=== PATIENT | female | born 1950 | race Caucasian/White ===

== ENCOUNTER 2017-06-04 08:45 | Inpatient (IN) | payer MEDICARE, MEDICAID ==
[~2017-06-04] VITALS: Ht 170.2 cm; Wt 47.7 kg
[~2017-06-04 08:45] MED LIST: ALBU18HF2 INH; ARIP10TA15 PO; ASPI-1264 PO; ATI1T PO; ATOR10TA87 PO; ATR0.5NEB NEB; BISA10SU60 PR; BUDE10.2 INH; DIPH25CA83 PO; ESCI10TA PO; FLUT16SP10; IBUP-1594 PO; LORA1TAB PO; LURA60TA2 PO; LURA80TA3 PO; MAG355OR18 PO; MAGN400O6 PO; MONT10TA21 PO; MULT1TAB74 PO; OLAN5TAB3 PO; TOPI25TA15 PO
[2017-06-04] MEDS ORDERED: dexamethasone sod phosphate 10mg/ml inj IV STA (09:01)
[2017-06-04] MEDS ORDERED: ipratropium/albuterol 3ml nebule NEB ONE (09:05)
[2017-06-04] MEDS ORDERED: vancomycin/NS 1 GM ADD-VANTAGE 250 ML IV ONE ×2 (09:25→11:00)
[2017-06-04] MEDS ORDERED: piperacillin/tazo 3.375gm/50ml 50 ML IV ONE (09:25)
[2017-06-04] MEDS ORDERED: normal saline 1000ML IV soln IV ONE (09:25)
[2017-06-04 09:39] LABS: BASOPHILS % (AUTO) 0 % (0-1); EOSINOPHILS % (AUTO) 0 % (0-6); HEMOGLOBIN 13.4 g/dl (12.0-16.0); LYMPHOCYTES # (AUTO) 0.3 X10'3 (1.1-4.8); LYMPHOCYTES % (AUTO) 3.2 % (21-51); MEAN CORPUSCULAR HEMOGLOBIN 31.7 PG (27.0-31.0); MEAN CORPUSCULAR HGB CONC 32.6 % (33.0-36.5); MEAN CORPUSCULAR VOLUME 97.4 FL (78-98); MONOCYTES % (AUTO) 9.8 % (2-12); NEUTROPHILS # (AUTO) 9.2 X10'3 (1.8-7.7); PLATELET COUNT 195 X10'3 (140-440); RED BLOOD COUNT 4.21 X10'6 (4.20-5.60); RED CELL DISTRIBUTION WIDTH 14.3 % (11.5-14.5); WHITE BLOOD COUNT 10.6 X10'3 (4.5-11.0)
[2017-06-04 09:41] LABS: ABG BASE EXCESS 14.1 mmol/L (-2.0-3.0); ABG HCO3 43.3 mmol/L (22.0-26.0); ABG OXYGEN SATURATION 94.2 % (95-98); ABG PCO2 (T) 79.5 mmHg (32.0-45.0); ABG PH (T) 7.354 (7.350-7.450); ABG PO2 (T) 72.6 mmHg (83-108); ALLEN'S TEST Positive; FCOHb 1.5 % (0.5-1.5); FLOW 6 L/min; FMetHb 0.2 % (0.3-1.12); FO2Hb 92.6 % (94-100); TOTAL HEMOGLOBIN 13.2 G/dl (12.0-16.0)
[2017-06-04 10:05] LABS: ALANINE AMINOTRANSFERASE 54 U/L (12-78); ALBUMIN 3.3 G/DL (3.4-5.0); ALBUMIN/GLOBULIN RATIO 0.8 (1.1-1.5); ALKALINE PHOSPHATASE 93 IU/L (46-116); ANION GAP -1 (8-16); ASPARTATE AMINO TRANSFERASE 41 U/L (10-37); BILIRUBIN,TOTAL 0.5 MG/DL (0.1-1.0); BLOOD UREA NITROGEN 21 MG/DL (7-18); BUN/CREATININE RATIO 36.2 (6.6-38.0); CALCIUM 9.3 MG/DL (8.5-10.1); CHLORIDE 99 MMOL/L (99-107); CREATININE 0.58 MG/DL (0.40-0.90); GLUCOSE 172 MG/DL (70-104); POTASSIUM 3.6 MMOL/L (3.5-5.1); SODIUM 140 MMOL/L (135-145); TOTAL PROTEIN 7.7 G/DL (6.4-8.2); eGFR > 90 ML/MIN
[2017-06-04 10:06] LABS: TOTAL CARBON DIOXIDE 42.1 MMOL/L (24-32)
[2017-06-04 11:20] LABS: ABG BASE EXCESS 5.7 mmol/L (-2.0-3.0); ABG HCO3 33.9 mmol/L (22.0-26.0); ABG OXYGEN SATURATION 93.6 % (95-98); ABG PCO2 (T) 67.9 mmHg (32.0-45.0); ABG PH (T) 7.316 (7.350-7.450); ALLEN'S TEST Positive; FCOHb 0.9 % (0.5-1.5); FMetHb 0.2 % (0.3-1.12); FO2Hb 92.6 % (94-100); RESPIRATORY RATE 20 b/min; TOTAL HEMOGLOBIN 12.5 G/dl (12.0-16.0)
[2017-06-04] MEDS ORDERED: mag hydrox/Alum hydrox/simeth 30ml oral suspension PO PRN ×2 (11:40→11:45)
[2017-06-04] MEDS ORDERED: LORazepam 1 MG tablet PO PRN (11:40)
[2017-06-04] MEDS ORDERED: ondansetron/PF 4mg/2ml inj IV PRN (11:45)
[2017-06-04] MEDS ORDERED: acetaminophen 325mg tablet PO PRN (11:45)
[2017-06-04] MEDS: levoFLOXACIN-Levaquin 750MG/D5 150 ML IV SCH (13:32)
[2017-06-04 14:00] VITALS: BP 126/65
[2017-06-04] MEDS: ipratropium/albuterol 3ml nebule NEB SCH ×3 (14:33→23:15)
[2017-06-04] MEDS: methylPREDNISolone sod succ/PF 40mg inj. IV SCH ×2 (14:58→20:45)
[2017-06-04] MEDS: magnesium hydroxide 30ml (MOM) UD suspension PO PRN (15:55)
[2017-06-04 18:00] VITALS: BP 127/70
[2017-06-04] MEDS: furosemide 10 MG/1 ML 10ml inj IV SCH (20:45)
[2017-06-04] MEDS: topiramate 25mg tablet PO SCH (20:45)
[2017-06-04] MEDS: aspirin 325mg tablet PO SCH (20:46)
[2017-06-04] MEDS: olanzapine 10mg tablet PO SCH (20:46)
[2017-06-04] MEDS: citalopram 20mg tablet PO SCH (20:46)
[2017-06-04] MEDS: atorvastatin 10mg tablet PO SCH (20:46)
[2017-06-04 22:00] VITALS: BP 123/75
[2017-06-05] MEDS: methylPREDNISolone sod succ/PF 40mg inj. IV SCH ×6 (02:30→19:57)
[2017-06-05] MEDS: ipratropium/albuterol 3ml nebule NEB SCH ×6 (03:17→23:16)
[2017-06-05 05:30] VITALS: BP 138/76
[2017-06-05 06:40] LABS: ALBUMIN 2.8 G/DL (3.4-5.0); ANION GAP 3 (8-16); BLOOD UREA NITROGEN 14 MG/DL (7-18); BUN/CREATININE RATIO 25.5 (6.6-38.0); CALCIUM 8.5 MG/DL (8.5-10.1); CHLORIDE 100 MMOL/L (99-107); CREATININE 0.55 MG/DL (0.40-0.90); GLUCOSE 183 MG/DL (70-104); SODIUM 140 MMOL/L (135-145); TOTAL CARBON DIOXIDE 37.2 MMOL/L (24-32); eGFR > 90 ML/MIN
[2017-06-05 07:15] LABS: BASOPHILS % (AUTO) 0 % (0-1); EOSINOPHILS % (AUTO) 0 % (0-6); HEMATOCRIT 35.3 % (35.0-45.0); HEMOGLOBIN 11.9 g/dl (12.0-16.0); LYMPHOCYTES # (AUTO) 0.4 X10'3 (1.1-4.8); LYMPHOCYTES % (AUTO) 4.2 % (21-51); MEAN CORPUSCULAR HEMOGLOBIN 32.2 PG (27.0-31.0); MEAN CORPUSCULAR HGB CONC 33.6 % (33.0-36.5); MEAN CORPUSCULAR VOLUME 95.8 FL (78-98); MEAN PLATELET VOLUME 8.3 FL (7.4-10.4); MONOCYTES # (AUTO) 0.4 X10'3 (0-0.9); MONOCYTES % (AUTO) 4.2 % (2-12); NEUTROPHILS # (AUTO) 8.2 X10'3 (1.8-7.7); NEUTROPHILS % (AUTO) 91.6 % (42-75); PLATELET COUNT 201 X10'3 (140-440); RED BLOOD COUNT 3.68 X10'6 (4.20-5.60); WHITE BLOOD COUNT 8.9 X10'3 (4.5-11.0)
[2017-06-05] MEDS ORDERED: potassium Cl 40MEQ/NS 500ml 500 ML IV PRN ×2 (07:30)
[2017-06-05] MEDS ORDERED: potassium Cl 20 mEq SR tablet PO PRN (07:30)
[2017-06-05] MEDS: fluticasone nasal spray 16GM bottle NS SCH (08:57)
[2017-06-05] MEDS: aripiprazole 5mg tablet PO SCH (08:57)
[2017-06-05] MEDS: LACTOBACILLUS RHAMNOSUS GG 15 billion unit sprinkle caps PO SCH (08:58)
[2017-06-05] MEDS: aspirin 325mg tablet PO SCH ×2 (08:58→19:49)
[2017-06-05] MEDS: potassium Cl 20 mEq SR tablet PO PRN ×3 (08:58→13:38)
[2017-06-05] MEDS: topiramate 25mg tablet PO SCH ×2 (08:58→20:00)
[2017-06-05] MEDS: diphenhydrAMINE 25mg capsule PO SCH (08:58)
[2017-06-05] MEDS: multivitamins, therapeutics tablet PO SCH (08:58)
[2017-06-05] MEDS: levoFLOXACIN-Levaquin 750MG/D5 150 ML IV SCH (08:59)
[2017-06-05] MEDS: lurasidone 60mg tablet PO SCH (08:59)
[2017-06-05] MEDS: citalopram 20mg tablet PO SCH ×2 (08:59→19:57)
[2017-06-05] MEDS: montelukast 10mg tablet PO SCH (08:59)
[2017-06-05] MEDS: furosemide 10 MG/1 ML 10ml inj IV SCH ×2 (09:32→19:57)
[2017-06-05 10:00] VITALS: BP 139/68
[2017-06-05] MEDS: clindamycin phosphate inj 300 MG in dextrose 5%-water 50ml 48 ML IV SCH ×3 (10:51→19:48)
[2017-06-05 18:00] VITALS: BP 120/70
[2017-06-05] MEDS: atorvastatin 10mg tablet PO SCH (20:01)
[2017-06-05] MEDS: olanzapine 10mg tablet PO SCH (20:02)
[2017-06-05 22:00] VITALS: BP 108/54
[2017-06-06] MEDS: clindamycin phosphate inj 300 MG in dextrose 5%-water 50ml 48 ML IV SCH ×4 (01:27→20:17)
[2017-06-06] MEDS: methylPREDNISolone sod succ/PF 40mg inj. IV SCH ×4 (01:27→20:16)
[2017-06-06] MEDS: ipratropium/albuterol 3ml nebule NEB SCH ×6 (02:50→23:32)
[2017-06-06 05:00] VITALS: BP 101/54
[2017-06-06 06:53] LABS: BASOPHILS % (AUTO) 0.2 % (0-1); EOSINOPHILS % (AUTO) 0 % (0-6); HEMATOCRIT 35.7 % (35.0-45.0); HEMOGLOBIN 11.8 g/dl (12.0-16.0); LYMPHOCYTES # (AUTO) 0.6 X10'3 (1.1-4.8); LYMPHOCYTES % (AUTO) 4.4 % (21-51); MEAN CORPUSCULAR HEMOGLOBIN 31.7 PG (27.0-31.0); MEAN CORPUSCULAR HGB CONC 33.1 % (33.0-36.5); MEAN CORPUSCULAR VOLUME 95.9 FL (78-98); MEAN PLATELET VOLUME 8.3 FL (7.4-10.4); MONOCYTES # (AUTO) 0.9 X10'3 (0-0.9); NEUTROPHILS # (AUTO) 11.8 X10'3 (1.8-7.7); NEUTROPHILS % (AUTO) 88.4 % (42-75); PLATELET COUNT 231 X10'3 (140-440); RED BLOOD COUNT 3.72 X10'6 (4.20-5.60); RED CELL DISTRIBUTION WIDTH 14.2 % (11.5-14.5); WHITE BLOOD COUNT 13.4 X10'3 (4.5-11.0)
[2017-06-06 07:06] LABS: ALBUMIN 2.6 G/DL (3.4-5.0); ANION GAP 1 (8-16); BLOOD UREA NITROGEN 24 MG/DL (7-18); BUN/CREATININE RATIO 42.1 (6.6-38.0); CALCIUM 8.6 MG/DL (8.5-10.1); CHLORIDE 104 MMOL/L (99-107); CREATININE 0.57 MG/DL (0.40-0.90); GLUCOSE 132 MG/DL (70-104); MAGNESIUM 2.3 MG/DL (1.5-2.4); POTASSIUM 3.7 MMOL/L (3.5-5.1); SODIUM 146 MMOL/L (135-145); eGFR > 90 ML/MIN
[2017-06-06 07:12] LABS: TOTAL CARBON DIOXIDE 41.3 MMOL/L (24-32)
[2017-06-06] MEDS: LACTOBACILLUS RHAMNOSUS GG 15 billion unit sprinkle caps PO SCH (07:30)
[2017-06-06] MEDS: citalopram 20mg tablet PO SCH ×2 (08:00→20:16)
[2017-06-06] MEDS: furosemide 10 MG/1 ML 10ml inj IV SCH ×2 (08:00→20:15)
[2017-06-06] MEDS: aripiprazole 5mg tablet PO SCH (08:00)
[2017-06-06] MEDS: lurasidone 60mg tablet PO SCH (08:00)
[2017-06-06] MEDS: fluticasone nasal spray 16GM bottle NS SCH (09:33)
[2017-06-06] MEDS: aspirin 325mg tablet PO SCH ×2 (09:37→20:16)
[2017-06-06] MEDS: multivitamins, therapeutics tablet PO SCH (09:38)
[2017-06-06] MEDS: diphenhydrAMINE 25mg capsule PO SCH (09:38)
[2017-06-06] MEDS: montelukast 10mg tablet PO SCH (09:38)
[2017-06-06] MEDS: topiramate 25mg tablet PO SCH ×2 (09:39→20:16)
[2017-06-06 10:00] VITALS: BP 117/71
[2017-06-06] MEDS: levoFLOXACIN-Levaquin 750MG/D5 150 ML IV SCH (11:52)
[2017-06-06] MEDS ORDERED: glycerin ADULT rectal suppository RC PRN (15:20)
[2017-06-06] MEDS: magnesium hydroxide 30ml (MOM) UD suspension PO PRN (17:23)
[2017-06-06 18:00] VITALS: BP 118/66
[2017-06-06] MEDS: olanzapine 10mg tablet PO SCH (20:15)
[2017-06-06] MEDS: atorvastatin 10mg tablet PO SCH (20:16)
[2017-06-06 22:00] VITALS: BP 106/64
[2017-06-07] MEDS: methylPREDNISolone sod succ/PF 40mg inj. IV SCH ×4 (02:23→20:59)
[2017-06-07] MEDS: clindamycin phosphate inj 300 MG in dextrose 5%-water 50ml 48 ML IV SCH ×4 (02:23→20:59)
[2017-06-07] MEDS: ipratropium/albuterol 3ml nebule NEB SCH ×6 (03:40→23:51)
[2017-06-07 06:00] VITALS: BP 116/70
[2017-06-07 07:05] LABS: BASOPHILS % (AUTO) 0.1 % (0-1); EOSINOPHILS % (AUTO) 0 % (0-6); HEMATOCRIT 38.4 % (35.0-45.0); HEMOGLOBIN 12.6 g/dl (12.0-16.0); LYMPHOCYTES # (AUTO) 0.5 X10'3 (1.1-4.8); LYMPHOCYTES % (AUTO) 3.7 % (21-51); MEAN CORPUSCULAR HEMOGLOBIN 31.7 PG (27.0-31.0); MEAN CORPUSCULAR HGB CONC 32.9 % (33.0-36.5); MEAN CORPUSCULAR VOLUME 96.4 FL (78-98); MEAN PLATELET VOLUME 7.7 FL (7.4-10.4); MONOCYTES # (AUTO) 0.6 X10'3 (0-0.9); MONOCYTES % (AUTO) 4.6 % (2-12); NEUTROPHILS # (AUTO) 11.4 X10'3 (1.8-7.7); NEUTROPHILS % (AUTO) 91.6 % (42-75); PLATELET COUNT 256 X10'3 (140-440); RED BLOOD COUNT 3.98 X10'6 (4.20-5.60); RED CELL DISTRIBUTION WIDTH 14.1 % (11.5-14.5); WHITE BLOOD COUNT 12.4 X10'3 (4.5-11.0)
[2017-06-07 07:20] LABS: ALBUMIN 2.7 G/DL (3.4-5.0); ANION GAP 0 (8-16); BLOOD UREA NITROGEN 20 MG/DL (7-18); BUN/CREATININE RATIO 34.5 (6.6-38.0); CALCIUM 8.7 MG/DL (8.5-10.1); CHLORIDE 101 MMOL/L (99-107); CREATININE 0.58 MG/DL (0.40-0.90); GLUCOSE 139 MG/DL (70-104); MAGNESIUM 2.4 MG/DL (1.5-2.4); POTASSIUM 3.8 MMOL/L (3.5-5.1); SODIUM 143 MMOL/L (135-145); eGFR > 90 ML/MIN
[2017-06-07 07:22] LABS: TOTAL CARBON DIOXIDE 41.9 MMOL/L (24-32)
[2017-06-07] MEDS: LACTOBACILLUS RHAMNOSUS GG 15 billion unit sprinkle caps PO SCH (07:30)
[2017-06-07] MEDS: levoFLOXACIN-Levaquin 750MG/D5 150 ML IV SCH (07:35)
[2017-06-07] MEDS: topiramate 25mg tablet PO SCH ×2 (08:00→21:04)
[2017-06-07] MEDS: citalopram 20mg tablet PO SCH ×2 (08:00→21:03)
[2017-06-07] MEDS: lurasidone 60mg tablet PO SCH (08:00)
[2017-06-07] MEDS: furosemide 10 MG/1 ML 10ml inj IV SCH ×2 (08:00→21:01)
[2017-06-07] MEDS: aripiprazole 5mg tablet PO SCH (08:00)
[2017-06-07] MEDS: fluticasone nasal spray 16GM bottle NS SCH (08:38)
[2017-06-07] MEDS: multivitamins, therapeutics tablet PO SCH (08:40)
[2017-06-07] MEDS: montelukast 10mg tablet PO SCH (08:41)
[2017-06-07] MEDS: diphenhydrAMINE 25mg capsule PO SCH (08:43)
[2017-06-07] MEDS: aspirin 325mg tablet PO SCH ×2 (08:43→21:03)
[2017-06-07 10:00] VITALS: BP 131/60
[2017-06-07 18:08] VITALS: BP 128/76
[2017-06-07] MEDS: ipratropium 0.06% nasal spray 15ml NS SCH (21:02)
[2017-06-07] MEDS: atorvastatin 10mg tablet PO SCH (21:03)
[2017-06-07] MEDS: olanzapine 10mg tablet PO SCH (21:03)
[2017-06-07 23:15] VITALS: BP 122/73
[2017-06-08] MEDS: clindamycin phosphate inj 300 MG in dextrose 5%-water 50ml 48 ML IV SCH ×4 (01:55→21:16)
[2017-06-08] MEDS: methylPREDNISolone sod succ/PF 40mg inj. IV SCH ×4 (01:55→21:15)
[2017-06-08] MEDS: magnesium hydroxide 30ml (MOM) UD suspension PO PRN (02:00)
[2017-06-08] MEDS: ipratropium/albuterol 3ml nebule NEB SCH ×6 (03:39→22:54)
[2017-06-08 05:55] LABS: BASOPHILS % (AUTO) 0.1 % (0-1); EOSINOPHILS % (AUTO) 0 % (0-6); HEMATOCRIT 40.2 % (35.0-45.0); HEMOGLOBIN 13.2 g/dl (12.0-16.0); LYMPHOCYTES # (AUTO) 0.5 X10'3 (1.1-4.8); LYMPHOCYTES % (AUTO) 4.2 % (21-51); MEAN CORPUSCULAR HEMOGLOBIN 31.4 PG (27.0-31.0); MEAN CORPUSCULAR HGB CONC 32.9 % (33.0-36.5); MEAN CORPUSCULAR VOLUME 95.4 FL (78-98); MEAN PLATELET VOLUME 7.8 FL (7.4-10.4); MONOCYTES # (AUTO) 0.3 X10'3 (0-0.9); MONOCYTES % (AUTO) 2.5 % (2-12); NEUTROPHILS # (AUTO) 11.7 X10'3 (1.8-7.7); NEUTROPHILS % (AUTO) 93.2 % (42-75); PLATELET COUNT 288 X10'3 (140-440); RED BLOOD COUNT 4.22 X10'6 (4.20-5.60); RED CELL DISTRIBUTION WIDTH 14.2 % (11.5-14.5); WHITE BLOOD COUNT 12.6 X10'3 (4.5-11.0)
[2017-06-08 06:00] VITALS: BP 132/82
[2017-06-08 06:19] LABS: ALBUMIN 3.1 G/DL (3.4-5.0); ANION GAP 4 (8-16); BLOOD UREA NITROGEN 18 MG/DL (7-18); CALCIUM 9.1 MG/DL (8.5-10.1); CHLORIDE 98 MMOL/L (99-107); CREATININE 0.72 MG/DL (0.40-0.90); GLUCOSE 158 MG/DL (70-104); MAGNESIUM 2.2 MG/DL (1.5-2.4); POTASSIUM 3.3 MMOL/L (3.5-5.1); SODIUM 140 MMOL/L (135-145); TOTAL CARBON DIOXIDE 38.3 MMOL/L (24-32); eGFR 81 ML/MIN
[2017-06-08] MEDS: fluticasone nasal spray 16GM bottle NS SCH (08:00)
[2017-06-08] MEDS: lurasidone 60mg tablet PO SCH (08:24)
[2017-06-08] MEDS: citalopram 20mg tablet PO SCH ×2 (08:24→21:16)
[2017-06-08] MEDS: aripiprazole 5mg tablet PO SCH (08:24)
[2017-06-08] MEDS: aspirin 325mg tablet PO SCH ×2 (08:24→21:16)
[2017-06-08] MEDS: acetaZOLAMIDE 250mg tablet PO SCH (08:24)
[2017-06-08] MEDS: diphenhydrAMINE 25mg capsule PO SCH (08:24)
[2017-06-08] MEDS: LACTOBACILLUS RHAMNOSUS GG 15 billion unit sprinkle caps PO SCH (08:24)
[2017-06-08] MEDS: montelukast 10mg tablet PO SCH (08:24)
[2017-06-08] MEDS: multivitamins, therapeutics tablet PO SCH (08:24)
[2017-06-08] MEDS: topiramate 25mg tablet PO SCH ×2 (08:24→21:16)
[2017-06-08] MEDS: furosemide 10 MG/1 ML 10ml inj IV SCH ×2 (08:32→21:15)
[2017-06-08] MEDS: ipratropium 0.06% nasal spray 15ml NS SCH ×2 (08:40→21:15)
[2017-06-08] MEDS: levoFLOXACIN-Levaquin 750MG/D5 150 ML IV SCH (09:49)
[2017-06-08 10:00] VITALS: BP 122/67
[2017-06-08] MEDS ORDERED: CLON-527 PO (11:31)
[2017-06-08] MEDS ORDERED: OLME5TAB3 PO (11:31)
[2017-06-08] MEDS ORDERED: CARB15DR91 EACH EAR (11:34)
[2017-06-08 18:00] VITALS: BP 128/79
[2017-06-08] MEDS: potassium Cl 20 mEq SR tablet PO SCH ×2 (20:00→21:16)
[2017-06-08] MEDS: olanzapine 10mg tablet PO SCH (21:16)
[2017-06-08] MEDS: atorvastatin 10mg tablet PO SCH (21:17)
[2017-06-08 22:00] VITALS: BP 119/72
[2017-06-09] MEDS: clindamycin phosphate inj 300 MG in dextrose 5%-water 50ml 48 ML IV SCH ×2 (02:12→09:29)
[2017-06-09] MEDS: methylPREDNISolone sod succ/PF 40mg inj. IV SCH ×2 (02:12→07:21)
[2017-06-09] MEDS: ipratropium/albuterol 3ml nebule NEB SCH ×2 (03:05→08:31)
[2017-06-09] MEDS: potassium Cl 20 mEq SR tablet PO SCH ×2 (04:00)
[2017-06-09 06:12] LABS: BASOPHILS % (AUTO) 0.1 % (0-1); EOSINOPHILS # (AUTO) 0.1 X10'3 (0-0.9); HEMATOCRIT 45.3 % (35.0-45.0); HEMOGLOBIN 14.9 g/dl (12.0-16.0); LYMPHOCYTES # (AUTO) 0.6 X10'3 (1.1-4.8); LYMPHOCYTES % (AUTO) 4.8 % (21-51); MEAN CORPUSCULAR HEMOGLOBIN 31.4 PG (27.0-31.0); MEAN CORPUSCULAR HGB CONC 32.9 % (33.0-36.5); MEAN CORPUSCULAR VOLUME 95.3 FL (78-98); MEAN PLATELET VOLUME 7.5 FL (7.4-10.4); MONOCYTES # (AUTO) 0.1 X10'3 (0-0.9); MONOCYTES % (AUTO) 1.2 % (2-12); NEUTROPHILS # (AUTO) 11.5 X10'3 (1.8-7.7); NEUTROPHILS % (AUTO) 92.9 % (42-75); PLATELET COUNT 350 X10'3 (140-440); RED BLOOD COUNT 4.76 X10'6 (4.20-5.60); RED CELL DISTRIBUTION WIDTH 14.1 % (11.5-14.5); WHITE BLOOD COUNT 12.3 X10'3 (4.5-11.0)
[2017-06-09 06:23] LABS: ALBUMIN 3.4 G/DL (3.4-5.0); ANION GAP 5 (8-16); BLOOD UREA NITROGEN 25 MG/DL (7-18); BUN/CREATININE RATIO 31.3 (6.6-38.0); CALCIUM 9.6 MG/DL (8.5-10.1); CHLORIDE 98 MMOL/L (99-107); GLUCOSE 146 MG/DL (70-104); MAGNESIUM 2.2 MG/DL (1.5-2.4); POTASSIUM 4.2 MMOL/L (3.5-5.1); SODIUM 137 MMOL/L (135-145); TOTAL CARBON DIOXIDE 34.1 MMOL/L (24-32); eGFR 72 ML/MIN
[2017-06-09 06:50] VITALS: BP 135/43
[2017-06-09] MEDS: topiramate 25mg tablet PO SCH (07:20)
[2017-06-09] MEDS: montelukast 10mg tablet PO SCH (07:20)
[2017-06-09] MEDS: acetaZOLAMIDE 250mg tablet PO SCH (07:21)
[2017-06-09] MEDS: LACTOBACILLUS RHAMNOSUS GG 15 billion unit sprinkle caps PO SCH (07:21)
[2017-06-09] MEDS: multivitamins, therapeutics tablet PO SCH (07:21)
[2017-06-09] MEDS: lurasidone 60mg tablet PO SCH (07:21)
[2017-06-09] MEDS: aspirin 325mg tablet PO SCH (07:21)
[2017-06-09] MEDS: citalopram 20mg tablet PO SCH (07:21)
[2017-06-09] MEDS: diphenhydrAMINE 25mg capsule PO SCH (07:21)
[2017-06-09] MEDS: fluticasone nasal spray 16GM bottle NS SCH (07:22)
[2017-06-09] MEDS: ipratropium 0.06% nasal spray 15ml NS SCH (07:22)
[2017-06-09] MEDS: levoFLOXACIN-Levaquin 750MG/D5 150 ML IV SCH (07:22)
[2017-06-09] MEDS: furosemide 10 MG/1 ML 10ml inj IV SCH ×2 (07:22→07:33)
[2017-06-09] MEDS: aripiprazole 5mg tablet PO SCH (07:30)
[2017-06-09] MEDS ORDERED: PRED10TA23 PO (10:43)
[2017-06-09] MEDS ORDERED: LEVO500T2 PO (10:43)
== END 2017-06-09 11:35 | DRG 190 ==
LOC: ER 08:45 → ED HOLD 11:41 → ORTHO 4S 14:00
PROVIDERS: ADMIT Family Medicine; ATTEND Internal Medicine
PROC: 5A09357 Assistance with Respiratory Ventilation, Less than 24 Consecutive Hours, Continuous Positive Airway Pressure (ICD-10-PCS; principal; 2017-06-04)
PROC: 5A09357 Assistance with Respiratory Ventilation, Less than 24 Consecutive Hours, Continuous Positive Airway Pressure (ICD-10-PCS; 2017-06-05)
DX: J44.0 Chronic obstructive pulmonary disease with (acute) lower respiratory infection (principal); J18.1 Lobar pneumonia, unspecified organism; J96.22 Acute and chronic respiratory failure with hypercapnia; E87.4 Mixed disorder of acid-base balance; J44.1 Chronic obstructive pulmonary disease with (acute) exacerbation; Z99.81 Dependence on supplemental oxygen; E87.6 Hypokalemia; F17.200 Nicotine dependence, unspecified, uncomplicated; F25.9 Schizoaffective disorder, unspecified; K59.00 Constipation, unspecified; Z53.20 Procedure and treatment not carried out because of patient's decision for unspecified reasons; Z91.19 Patient's noncompliance with other medical treatment and regimen; Z88.6 Allergy status to analgesic agent; Z79.899 Other long term (current) drug therapy; Z79.82 Long term (current) use of aspirin; Z82.3 Family history of stroke
CPT/HCPCS: 36415; 36600; 71045; 71250; 80048; 80053; 82803; 83605; 83735; 83880; 84484; 85018; 85025; 87040; 87070; 87077; 87185; 87502; 87503; 93005; 93306; 94640; 94660; 94667; 94668; 94760; 96365; 96366; 96368; 96375; 99291; J1100; J1940; J1956; J2543; J2920; J3370; J3490; J7030; J7060; Q0163

== ENCOUNTER 2017-12-30 14:46 | Inpatient (IN) | payer MEDICARE, MEDICAID ==
[~2017-12-30] VITALS: Ht 167.6 cm; Wt 49.3 kg
[~2017-12-30 14:46] MED LIST changes: +ACET-2119 PO; -ARIP10TA15 PO; +CARB15DR91 EACH EAR; +CLON-527 PO; -ESCI10TA PO; +GUAI600T45 PO; -IBUP-1594 PO; +IBUP-1984 PO; +LEVO750T46 PO; +LOPE2TAB25 PO; -LORA1TAB PO; -LURA60TA2 PO; -LURA80TA3 PO; -MONT10TA21 PO; -MULT1TAB74 PO; -OLAN5TAB3 PO; +OLME5TAB3 PO; +PRED10TA PO; -TOPI25TA15 PO; +ZIPR80CA2 PO
[2017-12-30] MEDS ORDERED: ipratropium/albuterol 3ml nebule NEB ONE (15:00)
[2017-12-30] MEDS ORDERED: methylPREDNISolone sod succ 125mg/2ml vial IV ONE ×2 (15:00→15:25)
[2017-12-30] MEDS: magnesium 1gm/100ml D5W IVPB 100 ML IV SCH ×2 (15:20→17:39)
[2017-12-30 15:23] LABS: BASOPHILS % (AUTO) 0.5 % (0-1); EOSINOPHILS # (AUTO) 0.1 X10'3 (0-0.9); EOSINOPHILS % (AUTO) 1.2 % (0-6); HEMATOCRIT 37.5 % (35.0-45.0); HEMOGLOBIN 11.9 g/dl (12.0-16.0); LYMPHOCYTES % (AUTO) 10.5 % (21-51); MEAN CORPUSCULAR HEMOGLOBIN 25.4 PG (27.0-31.0); MEAN CORPUSCULAR HGB CONC 31.9 % (33.0-36.5); MEAN CORPUSCULAR VOLUME 79.6 FL (78-98); MEAN PLATELET VOLUME 7.6 FL (7.4-10.4); MONOCYTES # (AUTO) 0.7 X10'3 (0-0.9); NEUTROPHILS # (AUTO) 7.6 X10'3 (1.8-7.7); NEUTROPHILS % (AUTO) 80.8 % (42-75); PLATELET COUNT 410 X10'3 (140-440); RED BLOOD COUNT 4.71 X10'6 (4.20-5.60); RED CELL DISTRIBUTION WIDTH 19.1 % (11.5-14.5); WHITE BLOOD COUNT 9.4 X10'3 (4.5-11.0)
[2017-12-30 15:34] LABS: D-DIMER 0.38 MG/L FEU (0-0.50)
[2017-12-30 15:52] LABS: ALANINE AMINOTRANSFERASE 69 U/L (12-78); ALBUMIN 2.9 G/DL (3.4-5.0); ALBUMIN/GLOBULIN RATIO 0.9 (1.1-1.5); ALKALINE PHOSPHATASE 67 IU/L (46-116); ASPARTATE AMINO TRANSFERASE 42 U/L (10-37); BILIRUBIN,TOTAL 0.7 MG/DL (0.1-1.0); BLOOD UREA NITROGEN 34 MG/DL (7-18); BUN/CREATININE RATIO 44.7 (6.6-38.0); CALCIUM 8.5 MG/DL (8.5-10.1); CHLORIDE 88 MMOL/L (99-107); CREATININE 0.76 MG/DL (0.40-0.90); GLUCOSE 96 MG/DL (70-104); POTASSIUM 3.4 MMOL/L (3.5-5.1); SODIUM 136 MMOL/L (135-145); eGFR 76 ML/MIN
[2017-12-30] MEDS ORDERED: normal saline 1000ML IV soln IVB ONE (15:55)
[2017-12-30 15:59] LABS: MAGNESIUM 1.9 MG/DL (1.5-2.4)
[2017-12-30 16:06] LABS: ANION GAP -1 (8-16)
[2017-12-30 16:07] LABS: TOTAL CARBON DIOXIDE 48.7 MMOL/L (24-32)
[2017-12-30 16:09] LABS: PLATELET ESTIMATE NORMAL
[2017-12-30 16:10] LABS: ANISOCYTOSIS 2+; POLYCHROMASIA FEW
[2017-12-30 16:12] LABS: HYPOCHROMASIA 2+
[2017-12-30 16:14] LABS: STOMATOCYTES 1+
[2017-12-30] MEDS ORDERED: levoFLOXACIN-Levaquin 500mg/D5 100 ML IV ONE (16:35)
[2017-12-30 16:36] LABS: ABG BASE EXCESS 19.8 mmol/L (-2.0-3.0); ABG HCO3 47.9 mmol/L (22.0-26.0); ABG OXYGEN SATURATION 70.7 % (95-98); ABG PCO2 (T) 72.5 mmHg (32.0-45.0); ABG PH (T) 7.438 (7.350-7.450); ABG PO2 (T) 38.6 mmHg (83-108); ALLEN'S TEST Positive; FCOHb 1.9 % (0.5-1.5); FMetHb 0.2 % (0.3-1.12); FO2Hb 69.2 % (94-100); TOTAL HEMOGLOBIN 12.7 G/dl (12.0-16.0)
[2017-12-30] MEDS ORDERED: magnesium 1gm/100ml D5W IVPB 100 ML IV SCH (17:25)
[2017-12-30] MEDS ORDERED: LORA0.5T PO (18:50)
[2017-12-30] MEDS ORDERED: FURO40TA4 PO (18:50)
[2017-12-30] MEDS ORDERED: IBUP-1985 PO (18:50)
[2017-12-30] MEDS ORDERED: NA P133E RC (18:50)
[2017-12-30] MEDS ORDERED: LOPE2TAB25 PO (18:50)
[2017-12-30] MEDS ORDERED: ZIPR60CA2 PO (18:50)
[2017-12-30] MEDS ORDERED: BUSP10TA11 PO (18:50)
[2017-12-30] MEDS ORDERED: ACET-2119 PO (18:50)
[2017-12-30] MEDS ORDERED: BISA-155 PO (18:50)
[2017-12-30] MEDS ORDERED: POTA10TA19 PO (18:50)
[2017-12-30] MEDS ORDERED: magnesium Cl slow-release 64mg tablet PO PRN (19:05)
[2017-12-30] MEDS ORDERED: ondansetron/PF 4mg/2ml inj IV PRN (19:05)
[2017-12-30] MEDS ORDERED: magnesium hydroxide 30ml (MOM) UD suspension PO PRN (19:05)
[2017-12-30] MEDS: K and/or MAG REPLACEMENT MC SCH (19:05)
[2017-12-30] MEDS ORDERED: magnesium 4gm in 100ml NS 100 ML IV PRN (19:05)
[2017-12-30] MEDS ORDERED: acetaminophen 325mg tablet PO PRN ×2 (19:05)
[2017-12-30] MEDS ORDERED: diphenhydrAMINE 25mg capsule PO PRN (19:05)
[2017-12-30] MEDS ORDERED: non-formulary drug (Na Phos,M-B/Na Phos,Di-Ba (Enema) 1 ENEMAS) RC PRN (19:05)
[2017-12-30] MEDS ORDERED: potassium Cl 20 mEq SR tablet PO PRN (19:05)
[2017-12-30] MEDS ORDERED: potassium Cl 40MEQ/NS 500ml 500 ML IV PRN ×2 (19:05)
[2017-12-30] MEDS ORDERED: magnesium 1gm/100ml D5W IVPB 100 ML IV PRN (19:05)
[2017-12-30] MEDS ORDERED: iohexol 350MG/ML 100ml bottle IV ONE (19:17)
[2017-12-30] MEDS ORDERED: vancomycin/NS 1 GM ADD-VANTAGE 250 ML IV SCH (20:00)
[2017-12-30] MEDS ORDERED: loperamide 2mg capsule PO PRN (20:00)
[2017-12-30 21:00] VITALS: BP 110/58
[2017-12-30] MEDS: piperacillin/tazo 3.375gm/50ml 50 ML IV SCH (21:47)
[2017-12-30] MEDS: busPIRone 5mg tablet PO SCH (21:47)
[2017-12-30] MEDS: normal saline 1000ml 1,000 ML IV SCH (21:47)
[2017-12-30] MEDS: ziprasidone 20mg capsule PO SCH (22:01)
[2017-12-30] MEDS: furosemide 40mg/4ml inj IV SCH (22:08)
[2017-12-30] MEDS: heparin, porcine 5000 units/ml vial SQ SCH (22:09)
[2017-12-30 23:00] VITALS: BP 105/47
[2017-12-31] VITALS (10 sets, daily range): BP systolic 86–111; BP diastolic 53–62
[2017-12-31 03:25] LABS: BASOPHILS % (AUTO) 0 % (0-1); EOSINOPHILS % (AUTO) 0 % (0-6); HEMATOCRIT 37.9 % (35.0-45.0); HEMOGLOBIN 11.9 g/dl (12.0-16.0); LYMPHOCYTES # (AUTO) 0.3 X10'3 (1.1-4.8); LYMPHOCYTES % (AUTO) 4.6 % (21-51); MEAN CORPUSCULAR HGB CONC 31.3 % (33.0-36.5); MEAN CORPUSCULAR VOLUME 79.9 FL (78-98); MEAN PLATELET VOLUME 8.2 FL (7.4-10.4); MONOCYTES % (AUTO) 0.8 % (2-12); NEUTROPHILS # (AUTO) 5.3 X10'3 (1.8-7.7); NEUTROPHILS % (AUTO) 94.6 % (42-75); PLATELET COUNT 445 X10'3 (140-440); RED BLOOD COUNT 4.75 X10'6 (4.20-5.60); RED CELL DISTRIBUTION WIDTH 19.4 % (11.5-14.5); WHITE BLOOD COUNT 5.6 X10'3 (4.5-11.0)
[2017-12-31 03:41] LABS: ALANINE AMINOTRANSFERASE 66 U/L (12-78); ALBUMIN 2.9 G/DL (3.4-5.0); ALBUMIN/GLOBULIN RATIO 0.9 (1.1-1.5); ALKALINE PHOSPHATASE 60 IU/L (46-116); ASPARTATE AMINO TRANSFERASE 31 U/L (10-37); BILIRUBIN,TOTAL 0.6 MG/DL (0.1-1.0); BLOOD UREA NITROGEN 31 MG/DL (7-18); BUN/CREATININE RATIO 41.9 (6.6-38.0); CALCIUM 8.4 MG/DL (8.5-10.1); CHLORIDE 93 MMOL/L (99-107); CREATININE 0.74 MG/DL (0.40-0.90); GLUCOSE 106 MG/DL (70-104); POTASSIUM 3.5 MMOL/L (3.5-5.1); SODIUM 135 MMOL/L (135-145); eGFR 79 ML/MIN
[2017-12-31 03:47] LABS: ANION GAP -4 (8-16); MAGNESIUM 2.4 MG/DL (1.5-2.4); PHOSPHORUS 4.6 MG/DL (2.3-4.5); TOTAL CARBON DIOXIDE 45.5 MMOL/L (24-32)
[2017-12-31] MEDS: piperacillin/tazo 3.375gm/50ml 50 ML IV SCH ×4 (03:57→20:51)
[2017-12-31 06:16] LABS: ANISOCYTOSIS 2+; HYPOCHROMASIA 1+; PLATELET ESTIMATE INCREASED; POIKILOCYTOSIS 1+; POLYCHROMASIA 1+; TARGET CELLS FEW
[2017-12-31] MEDS ORDERED: furosemide 40mg tablet PO SCH (08:00)
[2017-12-31] MEDS: K and/or MAG REPLACEMENT MC SCH (08:00)
[2017-12-31] MEDS: furosemide 40mg/4ml inj IV SCH ×2 (09:30→20:52)
[2017-12-31] MEDS: busPIRone 5mg tablet PO SCH ×2 (09:30→20:50)
[2017-12-31] MEDS: ziprasidone 20mg capsule PO SCH ×2 (09:30→20:50)
[2017-12-31] MEDS: heparin, porcine 5000 units/ml vial SQ SCH ×2 (09:31→20:51)
[2017-12-31] MEDS: albuterol 2.5 MG/3 ML nebule NEB SCH ×3 (10:06→20:18)
[2017-12-31] MEDS ORDERED: ATOR10TA87 PO (12:59)
[2017-12-31] MEDS ORDERED: MAGN400O6 PO (13:06)
[2017-12-31] MEDS ORDERED: ASPI-1264 PO (13:06)
[2017-12-31] MEDS ORDERED: DIPH25CA83 PO (13:06)
[2017-12-31] MEDS ORDERED: MAG355OR18 PO (13:06)
[2017-12-31] MEDS ORDERED: HYDR-565 PO (13:12)
[2017-12-31] MEDS: normal saline 1000ml 1,000 ML IV SCH (15:05)
[2017-12-31] MEDS: VANCOMYCIN 750MG IV in NS 250 ML IV SCH (16:20)
[2017-12-31] MEDS: lactobacillus rhamnosus 10,000 MMU CELLS/CAPSULE PO SCH (20:51)
[2018-01-01] MEDS: albuterol 2.5 MG/3 ML nebule NEB SCH ×4 (01:33→21:10)
[2018-01-01] MEDS: piperacillin/tazo 3.375gm/50ml 50 ML IV SCH ×3 (02:37→14:32)
[2018-01-01 03:00] VITALS: BP 91/54
[2018-01-01] MEDS: VANCOMYCIN 750MG IV in NS 250 ML IV SCH (04:21)
[2018-01-01 06:00] VITALS: BP 101/50
[2018-01-01 06:04] LABS: BASOPHILS % (AUTO) 0 % (0-1); EOSINOPHILS # (AUTO) 0.1 X10'3 (0-0.9); EOSINOPHILS % (AUTO) 1.3 % (0-6); HEMATOCRIT 33.7 % (35.0-45.0); HEMOGLOBIN 10.7 g/dl (12.0-16.0); LYMPHOCYTES # (AUTO) 0.7 X10'3 (1.1-4.8); LYMPHOCYTES % (AUTO) 7.7 % (21-51); MEAN CORPUSCULAR HEMOGLOBIN 25.2 PG (27.0-31.0); MEAN CORPUSCULAR HGB CONC 31.8 % (33.0-36.5); MEAN CORPUSCULAR VOLUME 79.1 FL (78-98); MEAN PLATELET VOLUME 7.7 FL (7.4-10.4); MONOCYTES # (AUTO) 1.1 X10'3 (0-0.9); MONOCYTES % (AUTO) 11.2 % (2-12); NEUTROPHILS # (AUTO) 7.6 X10'3 (1.8-7.7); NEUTROPHILS % (AUTO) 79.8 % (42-75); PLATELET COUNT 406 X10'3 (140-440); RED BLOOD COUNT 4.27 X10'6 (4.20-5.60); RED CELL DISTRIBUTION WIDTH 19.2 % (11.5-14.5); WHITE BLOOD COUNT 9.5 X10'3 (4.5-11.0)
[2018-01-01 06:33] LABS: ALANINE AMINOTRANSFERASE 61 U/L (12-78); ALBUMIN 2.7 G/DL (3.4-5.0); ALKALINE PHOSPHATASE 54 IU/L (46-116); ASPARTATE AMINO TRANSFERASE 34 U/L (10-37); BILIRUBIN,TOTAL 0.7 MG/DL (0.1-1.0); BLOOD UREA NITROGEN 24 MG/DL (7-18); BUN/CREATININE RATIO 35.3 (6.6-38.0); CHLORIDE 95 MMOL/L (99-107); CREATININE 0.68 MG/DL (0.40-0.90); GLUCOSE 96 MG/DL (70-104); MAGNESIUM 2.1 MG/DL (1.5-2.4); PHOSPHORUS 3.9 MG/DL (2.3-4.5); SODIUM 141 MMOL/L (135-145); TOTAL PROTEIN 5.4 G/DL (6.4-8.2); eGFR 87 ML/MIN
[2018-01-01 06:37] LABS: POTASSIUM 2.7 MMOL/L (3.5-5.1)
[2018-01-01 06:38] LABS: ANION GAP 2 (8-16); TOTAL CARBON DIOXIDE 43.8 MMOL/L (24-32)
[2018-01-01] MEDS: K and/or MAG REPLACEMENT MC SCH (08:00)
[2018-01-01] MEDS: lactobacillus rhamnosus 10,000 MMU CELLS/CAPSULE PO SCH ×2 (08:22→20:47)
[2018-01-01] MEDS: ziprasidone 20mg capsule PO SCH ×2 (08:22→20:47)
[2018-01-01] MEDS: busPIRone 5mg tablet PO SCH ×2 (08:22→20:47)
[2018-01-01] MEDS: LORazepam 0.5 MG tablet PO PRN (08:22)
[2018-01-01] MEDS: potassium Cl 20 mEq SR tablet PO PRN ×3 (08:23→20:47)
[2018-01-01] MEDS: furosemide 40mg/4ml inj IV SCH (08:26)
[2018-01-01] MEDS: heparin, porcine 5000 units/ml vial SQ SCH ×2 (08:26→20:46)
[2018-01-01 09:26] LABS: ANISOCYTOSIS 2+; MICROCYTOSIS 1+; PLATELET ESTIMATE NORMAL
[2018-01-01 09:27] LABS: HYPOCHROMASIA 1+; POIKILOCYTOSIS 1+; POLYCHROMASIA 1+; TARGET CELLS FEW
[2018-01-01 11:00] VITALS: BP 98/48
[2018-01-01 19:00] VITALS: BP 160/90
[2018-01-01] MEDS: methylPREDNISolone sod succ/PF 40mg inj. IV SCH (20:46)
[2018-01-01 23:00] VITALS: BP 93/68
[2018-01-02] VITALS (8 sets, daily range): BP systolic 94–119; BP diastolic 48–74
[2018-01-02] MEDS: LORazepam 0.5 MG tablet PO PRN ×2 (02:56→15:07)
[2018-01-02] MEDS: albuterol 2.5 MG/3 ML nebule NEB SCH ×4 (02:59→20:57)
[2018-01-02] MEDS ORDERED: VANCOMYCIN LEVEL IV ONE (03:30)
[2018-01-02 05:59] LABS: BASOPHILS % (AUTO) 0.1 % (0-1); EOSINOPHILS % (AUTO) 0 % (0-6); HEMATOCRIT 35.3 % (35.0-45.0); HEMOGLOBIN 11.6 g/dl (12.0-16.0); LYMPHOCYTES # (AUTO) 0.3 X10'3 (1.1-4.8); LYMPHOCYTES % (AUTO) 3.6 % (21-51); MEAN CORPUSCULAR HGB CONC 32.9 % (33.0-36.5); MEAN CORPUSCULAR VOLUME 79.1 FL (78-98); MEAN PLATELET VOLUME 8.4 FL (7.4-10.4); MONOCYTES # (AUTO) 0.1 X10'3 (0-0.9); MONOCYTES % (AUTO) 1.5 % (2-12); NEUTROPHILS # (AUTO) 6.9 X10'3 (1.8-7.7); NEUTROPHILS % (AUTO) 94.8 % (42-75); PLATELET COUNT 398 X10'3 (140-440); RED BLOOD COUNT 4.47 X10'6 (4.20-5.60); RED CELL DISTRIBUTION WIDTH 17.5 % (11.5-14.5); WHITE BLOOD COUNT 7.3 X10'3 (4.5-11.0)
[2018-01-02 06:33] LABS: ALANINE AMINOTRANSFERASE 61 U/L (12-78); ALBUMIN 2.8 G/DL (3.4-5.0); ALKALINE PHOSPHATASE 51 IU/L (46-116); ANION GAP 0 (8-16); ASPARTATE AMINO TRANSFERASE 26 U/L (10-37); BILIRUBIN,TOTAL 0.4 MG/DL (0.1-1.0); BLOOD UREA NITROGEN 17 MG/DL (7-18); BUN/CREATININE RATIO 32.1 (6.6-38.0); CALCIUM 8.7 MG/DL (8.5-10.1); CHLORIDE 98 MMOL/L (99-107); CREATININE 0.53 MG/DL (0.40-0.90); GLUCOSE 153 MG/DL (70-104); MAGNESIUM 2.4 MG/DL (1.5-2.4); PHOSPHORUS 3.8 MG/DL (2.3-4.5); POTASSIUM 4.8 MMOL/L (3.5-5.1); SODIUM 138 MMOL/L (135-145); TOTAL CARBON DIOXIDE 39.6 MMOL/L (24-32); TOTAL PROTEIN 5.7 G/DL (6.4-8.2); VANCOMYCIN,TROUGH 3.8 UG/ML (6.0-14.0); eGFR > 90 ML/MIN
[2018-01-02] MEDS: lactobacillus rhamnosus 10,000 MMU CELLS/CAPSULE PO SCH ×2 (07:45→21:02)
[2018-01-02] MEDS: azithromycin 250mg tablet PO SCH (07:46)
[2018-01-02] MEDS: methylPREDNISolone sod succ/PF 40mg inj. IV SCH ×2 (07:46→21:01)
[2018-01-02] MEDS: heparin, porcine 5000 units/ml vial SQ SCH ×2 (07:47→21:02)
[2018-01-02] MEDS: busPIRone 5mg tablet PO SCH ×2 (07:47→21:02)
[2018-01-02] MEDS: ziprasidone 20mg capsule PO SCH ×2 (07:48→21:02)
[2018-01-02] MEDS: K and/or MAG REPLACEMENT MC SCH (08:46)
[2018-01-02 10:51] LABS: ABG HCO3 41.8 mmol/L (22.0-26.0); ABG OXYGEN SATURATION 89.4 % (95-98); ABG PCO2 (T) 69.2 mmHg (32.0-45.0); ABG PH (T) 7.399 (7.350-7.450); ABG PO2 (T) 60.5 mmHg (83-108); ALLEN'S TEST Positive; FCOHb 0.8 % (0.5-1.5); FMetHb 0.3 % (0.3-1.12); FO2Hb 88.4 % (94-100); TOTAL HEMOGLOBIN 12.4 G/dl (12.0-16.0)
[2018-01-02] MEDS: HYDROcodone/acetaminophen 5mg/325mg tablet PO PRN (13:00)
[2018-01-02] MEDS: mag hydrox/Alum hydrox/simeth 30ml oral suspension PO PRN (17:57)
[2018-01-03] VITALS (7 sets, daily range): BP systolic 91–118; BP diastolic 49–64
[2018-01-03] MEDS: albuterol 2.5 MG/3 ML nebule NEB SCH ×4 (03:10→20:41)
[2018-01-03 05:31] LABS: BASOPHILS % (AUTO) 0.2 % (0-1); EOSINOPHILS % (AUTO) 0 % (0-6); HEMATOCRIT 35.7 % (35.0-45.0); HEMOGLOBIN 11.4 g/dl (12.0-16.0); LYMPHOCYTES # (AUTO) 0.3 X10'3 (1.1-4.8); LYMPHOCYTES % (AUTO) 3.1 % (21-51); MEAN CORPUSCULAR HEMOGLOBIN 25.7 PG (27.0-31.0); MEAN CORPUSCULAR VOLUME 80.4 FL (78-98); MEAN PLATELET VOLUME 8.4 FL (7.4-10.4); MONOCYTES # (AUTO) 0.2 X10'3 (0-0.9); MONOCYTES % (AUTO) 2.4 % (2-12); NEUTROPHILS # (AUTO) 9.9 X10'3 (1.8-7.7); NEUTROPHILS % (AUTO) 94.3 % (42-75); PLATELET COUNT 404 X10'3 (140-440); RED BLOOD COUNT 4.43 X10'6 (4.20-5.60); RED CELL DISTRIBUTION WIDTH 17.8 % (11.5-14.5); WHITE BLOOD COUNT 10.4 X10'3 (4.5-11.0)
[2018-01-03 05:52] LABS: ALANINE AMINOTRANSFERASE 55 U/L (12-78); ALBUMIN 2.8 G/DL (3.4-5.0); ALKALINE PHOSPHATASE 50 IU/L (46-116); ASPARTATE AMINO TRANSFERASE 23 U/L (10-37); BILIRUBIN,TOTAL 0.4 MG/DL (0.1-1.0); BLOOD UREA NITROGEN 18 MG/DL (7-18); BUN/CREATININE RATIO 38.3 (6.6-38.0); CALCIUM 8.9 MG/DL (8.5-10.1); CREATININE 0.47 MG/DL (0.40-0.90); GLUCOSE 121 MG/DL (70-104); MAGNESIUM 2.3 MG/DL (1.5-2.4); PHOSPHORUS 3.8 MG/DL (2.3-4.5); TOTAL PROTEIN 5.7 G/DL (6.4-8.2); eGFR > 90 ML/MIN
[2018-01-03 06:04] LABS: ANION GAP -3 (8-16); CHLORIDE 99 MMOL/L (99-107); POTASSIUM 5.2 MMOL/L (3.5-5.1); SODIUM 139 MMOL/L (135-145)
[2018-01-03 06:12] LABS: TOTAL CARBON DIOXIDE 42.7 MMOL/L (24-32)
[2018-01-03] MEDS: K and/or MAG REPLACEMENT MC SCH (08:00)
[2018-01-03] MEDS: busPIRone 5mg tablet PO SCH ×2 (09:20→19:34)
[2018-01-03] MEDS: ziprasidone 20mg capsule PO SCH ×2 (09:20→19:34)
[2018-01-03] MEDS: azithromycin 250mg tablet PO SCH (09:20)
[2018-01-03] MEDS: lactobacillus rhamnosus 10,000 MMU CELLS/CAPSULE PO SCH ×2 (09:20→19:34)
[2018-01-03] MEDS: methylPREDNISolone sod succ/PF 40mg inj. IV SCH ×2 (09:21→19:33)
[2018-01-03] MEDS: heparin, porcine 5000 units/ml vial SQ SCH ×2 (09:21→19:36)
[2018-01-04] VITALS (9 sets, daily range): BP systolic 98–131; BP diastolic 51–77
[2018-01-04] MEDS: LORazepam 0.5 MG tablet PO PRN ×2 (01:56→19:35)
[2018-01-04] MEDS: albuterol 2.5 MG/3 ML nebule NEB SCH ×4 (02:15→21:04)
[2018-01-04] MEDS: HYDROcodone/acetaminophen 5mg/325mg tablet PO PRN ×4 (05:14→23:37)
[2018-01-04 07:12] LABS: BASOPHILS # (AUTO) 0.1 X10'3 (0-0.2); BASOPHILS % (AUTO) 0.6 % (0-1); EOSINOPHILS % (AUTO) 0 % (0-6); HEMOGLOBIN 11.8 g/dl (12.0-16.0); LYMPHOCYTES # (AUTO) 0.3 X10'3 (1.1-4.8); LYMPHOCYTES % (AUTO) 2.6 % (21-51); MEAN CORPUSCULAR HEMOGLOBIN 25.1 PG (27.0-31.0); MEAN CORPUSCULAR HGB CONC 31.1 % (33.0-36.5); MEAN CORPUSCULAR VOLUME 80.8 FL (78-98); MEAN PLATELET VOLUME 8.6 FL (7.4-10.4); MONOCYTES # (AUTO) 1.1 X10'3 (0-0.9); MONOCYTES % (AUTO) 7.9 % (2-12); NEUTROPHILS # (AUTO) 11.9 X10'3 (1.8-7.7); NEUTROPHILS % (AUTO) 88.9 % (42-75); PLATELET COUNT 441 X10'3 (140-440); RED BLOOD COUNT 4.71 X10'6 (4.20-5.60); RED CELL DISTRIBUTION WIDTH 17.7 % (11.5-14.5); WHITE BLOOD COUNT 13.4 X10'3 (4.5-11.0)
[2018-01-04 07:30] LABS: ALANINE AMINOTRANSFERASE 65 U/L (12-78); ALBUMIN 2.9 G/DL (3.4-5.0); ALKALINE PHOSPHATASE 48 IU/L (46-116); ANION GAP 0 (8-16); ASPARTATE AMINO TRANSFERASE 22 U/L (10-37); BILIRUBIN,TOTAL 0.5 MG/DL (0.1-1.0); BLOOD UREA NITROGEN 22 MG/DL (7-18); BUN/CREATININE RATIO 42.3 (6.6-38.0); CALCIUM 8.9 MG/DL (8.5-10.1); CHLORIDE 100 MMOL/L (99-107); CREATININE 0.52 MG/DL (0.40-0.90); GLUCOSE 118 MG/DL (70-104); MAGNESIUM 2.1 MG/DL (1.5-2.4); PHOSPHORUS 3.7 MG/DL (2.3-4.5); POTASSIUM 4.8 MMOL/L (3.5-5.1); SODIUM 138 MMOL/L (135-145); TOTAL CARBON DIOXIDE 37.6 MMOL/L (24-32); TOTAL PROTEIN 5.8 G/DL (6.4-8.2); eGFR > 90 ML/MIN
[2018-01-04] MEDS: azithromycin 250mg tablet PO SCH (07:45)
[2018-01-04] MEDS: methylPREDNISolone sod succ/PF 40mg inj. IV SCH ×2 (07:45→19:32)
[2018-01-04] MEDS: busPIRone 5mg tablet PO SCH ×2 (07:45→19:24)
[2018-01-04] MEDS: heparin, porcine 5000 units/ml vial SQ SCH ×2 (07:45→19:28)
[2018-01-04] MEDS: lactobacillus rhamnosus 10,000 MMU CELLS/CAPSULE PO SCH ×2 (07:45→19:24)
[2018-01-04] MEDS: ziprasidone 20mg capsule PO SCH ×2 (07:46→19:24)
[2018-01-04] MEDS: K and/or MAG REPLACEMENT MC SCH (07:47)
[2018-01-05] VITALS (13 sets, daily range): BP systolic 98–139; BP diastolic 50–80
[2018-01-05] MEDS: albuterol 2.5 MG/3 ML nebule NEB SCH ×3 (02:33→14:45)
[2018-01-05] MEDS: LORazepam 0.5 MG tablet PO PRN ×2 (03:34→12:28)
[2018-01-05] MEDS: lactobacillus rhamnosus 10,000 MMU CELLS/CAPSULE PO SCH ×3 (07:43→20:00)
[2018-01-05] MEDS: busPIRone 5mg tablet PO SCH ×2 (07:43→19:19)
[2018-01-05] MEDS: azithromycin 250mg tablet PO SCH (07:43)
[2018-01-05] MEDS: ziprasidone 20mg capsule PO SCH ×2 (07:44→19:18)
[2018-01-05] MEDS: HYDROcodone/acetaminophen 5mg/325mg tablet PO PRN ×2 (07:44→14:36)
[2018-01-05] MEDS: heparin, porcine 5000 units/ml vial SQ SCH ×2 (07:45→19:21)
[2018-01-05] MEDS: methylPREDNISolone sod succ/PF 40mg inj. IV SCH ×2 (07:46→19:20)
[2018-01-05 09:06] LABS: HEMATOCRIT 38.3 % (35.0-45.0); MEAN CORPUSCULAR HEMOGLOBIN 24.9 PG (27.0-31.0); MEAN CORPUSCULAR HGB CONC 31.3 % (33.0-36.5); MEAN CORPUSCULAR VOLUME 79.6 FL (78-98); MEAN PLATELET VOLUME 7.9 FL (7.4-10.4); PLATELET COUNT 437 X10'3 (140-440); RED BLOOD COUNT 4.81 X10'6 (4.20-5.60); RED CELL DISTRIBUTION WIDTH 19.5 % (11.5-14.5); WHITE BLOOD COUNT 14.1 X10'3 (4.5-11.0)
[2018-01-05 09:20] LABS: ALANINE AMINOTRANSFERASE 55 U/L (12-78); ALBUMIN 2.9 G/DL (3.4-5.0); ALKALINE PHOSPHATASE 51 IU/L (46-116); ANION GAP 3 (8-16); ASPARTATE AMINO TRANSFERASE 18 U/L (10-37); BILIRUBIN,TOTAL 0.6 MG/DL (0.1-1.0); BLOOD UREA NITROGEN 22 MG/DL (7-18); BUN/CREATININE RATIO 36.7 (6.6-38.0); CALCIUM 9.1 MG/DL (8.5-10.1); CHLORIDE 99 MMOL/L (99-107); GLUCOSE 127 MG/DL (70-104); POTASSIUM 4.7 MMOL/L (3.5-5.1); SODIUM 139 MMOL/L (135-145); TOTAL PROTEIN 5.8 G/DL (6.4-8.2); eGFR > 90 ML/MIN
[2018-01-05 09:29] LABS: ANISOCYTOSIS 2+; HYPOCHROMASIA 1+; PLATELET ESTIMATE NORMAL; TOTAL CELLS COUNTED 100
[2018-01-05] MEDS: morphine 2 MG/ML inj. syringe IV PRN ×5 (12:29→22:11)
[2018-01-05] MEDS ORDERED: pantoprazole 40 MG vial IV ONE (12:45)
[2018-01-05 13:16] LABS: ABG BASE EXCESS 8.8 mmol/L (-2.0-3.0); ABG HCO3 35.1 mmol/L (22.0-26.0); ABG OXYGEN SATURATION 90.6 % (95-98); ABG PCO2 (T) 56.3 mmHg (32.0-45.0); ABG PH (T) 7.413 (7.350-7.450); ABG PO2 (T) 62.4 mmHg (83-108); ALLEN'S TEST Positive; FMetHb 0.2 % (0.3-1.12); FO2Hb 89.5 % (94-100); MINUTE VOLUME 14 L/min; RESPIRATORY RATE 12 b/min; RESPIRATORY RATE (OBSERVED) 34 b/min; TOTAL HEMOGLOBIN 12.8 G/dl (12.0-16.0)
[2018-01-05] MEDS: dextrose 5%-1/2 normal saline 1,000 ML IV SCH (14:39)
[2018-01-05] MEDS ORDERED: ipratropium/albuterol 3ml nebule NEB PRN (17:45)
[2018-01-05] MEDS: K and/or MAG REPLACEMENT MC SCH (18:35)
[2018-01-05] MEDS: ipratropium/albuterol 3ml nebule NEB SCH ×2 (18:54→22:51)
[2018-01-06] VITALS (8 sets, daily range): BP systolic 101–135; BP diastolic 44–67
[2018-01-06] MEDS: morphine 2 MG/ML inj. syringe IV PRN ×6 (01:03→19:40)
[2018-01-06] MEDS: dextrose 5%-1/2 normal saline 1,000 ML IV SCH ×2 (03:03→17:21)
[2018-01-06] MEDS: ipratropium/albuterol 3ml nebule NEB SCH ×5 (07:25→23:00)
[2018-01-06] MEDS: lactobacillus rhamnosus 10,000 MMU CELLS/CAPSULE PO SCH ×4 (08:00→20:00)
[2018-01-06] MEDS: K and/or MAG REPLACEMENT MC SCH (08:00)
[2018-01-06] MEDS: heparin, porcine 5000 units/ml vial SQ SCH ×2 (08:15→19:40)
[2018-01-06] MEDS: ziprasidone 20mg capsule PO SCH ×2 (08:15→19:39)
[2018-01-06] MEDS: methylPREDNISolone sod succ/PF 40mg inj. IV SCH ×2 (08:15→19:38)
[2018-01-06] MEDS: pantoprazole 40 MG vial IV SCH (08:16)
[2018-01-06] MEDS: busPIRone 5mg tablet PO SCH ×2 (08:17→19:39)
[2018-01-06] MEDS: azithromycin 250mg tablet PO SCH (08:17)
[2018-01-06] MEDS: HYDROcodone/acetaminophen 5mg/325mg tablet PO PRN ×2 (11:51→16:01)
[2018-01-06] MEDS: mag hydrox/Alum hydrox/simeth 30ml oral suspension PO SCH (16:37)
[2018-01-07 02:00] VITALS: BP 103/44
[2018-01-07] MEDS: LORazepam 0.5 MG tablet PO PRN ×2 (03:51→15:41)
[2018-01-07] MEDS: morphine 2 MG/ML inj. syringe IV PRN ×3 (05:34→19:55)
[2018-01-07 06:00] VITALS: BP 102/58
[2018-01-07] MEDS: mag hydrox/Alum hydrox/simeth 30ml oral suspension PO SCH ×3 (06:27→17:21)
[2018-01-07] MEDS: dextrose 5%-1/2 normal saline 1,000 ML IV SCH ×2 (07:39→18:02)
[2018-01-07] MEDS: ipratropium/albuterol 3ml nebule NEB SCH ×5 (07:55→23:00)
[2018-01-07] MEDS: K and/or MAG REPLACEMENT MC SCH (08:00)
[2018-01-07] MEDS: lactobacillus rhamnosus 10,000 MMU CELLS/CAPSULE PO SCH ×4 (08:00→20:08)
[2018-01-07] MEDS: pantoprazole 40 MG vial IV SCH (08:12)
[2018-01-07] MEDS: heparin, porcine 5000 units/ml vial SQ SCH ×2 (08:13→20:02)
[2018-01-07] MEDS: methylPREDNISolone sod succ/PF 40mg inj. IV SCH ×2 (08:13→20:01)
[2018-01-07] MEDS: ziprasidone 20mg capsule PO SCH ×2 (08:14→19:58)
[2018-01-07] MEDS: busPIRone 5mg tablet PO SCH ×2 (08:15→20:01)
[2018-01-07] MEDS: azithromycin 250mg tablet PO SCH (08:15)
[2018-01-07 09:06] LABS: BASOPHILS % (AUTO) 0 % (0-1); EOSINOPHILS % (AUTO) 0 % (0-6); HEMATOCRIT 36.4 % (35.0-45.0); HEMOGLOBIN 11.2 g/dl (12.0-16.0); LYMPHOCYTES # (AUTO) 0.9 X10'3 (1.1-4.8); LYMPHOCYTES % (AUTO) 6.5 % (21-51); MEAN CORPUSCULAR HEMOGLOBIN 24.4 PG (27.0-31.0); MEAN CORPUSCULAR HGB CONC 30.8 % (33.0-36.5); MEAN CORPUSCULAR VOLUME 79.2 FL (78-98); MEAN PLATELET VOLUME 8.2 FL (7.4-10.4); MONOCYTES % (AUTO) 6.8 % (2-12); NEUTROPHILS # (AUTO) 12.6 X10'3 (1.8-7.7); NEUTROPHILS % (AUTO) 86.7 % (42-75); PLATELET COUNT 339 X10'3 (140-440); RED CELL DISTRIBUTION WIDTH 19.3 % (11.5-14.5); WHITE BLOOD COUNT 14.5 X10'3 (4.5-11.0)
[2018-01-07 09:17] LABS: ALBUMIN 2.6 G/DL (3.4-5.0); ANION GAP 3 (8-16); BLOOD UREA NITROGEN 22 MG/DL (7-18); BUN/CREATININE RATIO 46.8 (6.6-38.0); CALCIUM 8.4 MG/DL (8.5-10.1); CHLORIDE 102 MMOL/L (99-107); CREATININE 0.47 MG/DL (0.40-0.90); GLUCOSE 120 MG/DL (70-104); POTASSIUM 4.4 MMOL/L (3.5-5.1); SODIUM 138 MMOL/L (135-145); TOTAL CARBON DIOXIDE 33.1 MMOL/L (24-32); eGFR > 90 ML/MIN
[2018-01-07 11:00] VITALS: BP 105/46
[2018-01-07 11:19] LABS: ANISOCYTOSIS 2+; PLATELET ESTIMATE NORMAL
[2018-01-07 11:20] LABS: BURR CELLS FEW; SCHISTOCYTES FEW; TARGET CELLS FEW
[2018-01-07 15:00] VITALS: BP 137/58
[2018-01-07] MEDS: HYDROcodone/acetaminophen 5mg/325mg tablet PO PRN (15:41)
[2018-01-07 18:00] VITALS: BP 108/43
[2018-01-07 22:00] VITALS: BP 106/50
[2018-01-08 02:00] VITALS: BP 121/77
[2018-01-08] MEDS: LORazepam 0.5 MG tablet PO PRN ×2 (02:48→11:11)
[2018-01-08] MEDS: HYDROcodone/acetaminophen 5mg/325mg tablet PO PRN ×3 (02:49→14:28)
[2018-01-08] MEDS: mag hydrox/Alum hydrox/simeth 30ml oral suspension PO PRN (04:21)
[2018-01-08 05:48] LABS: ALBUMIN 2.6 G/DL (3.4-5.0); ANION GAP -2 (8-16); BLOOD UREA NITROGEN 24 MG/DL (7-18); BUN/CREATININE RATIO 54.5 (6.6-38.0); CALCIUM 8.6 MG/DL (8.5-10.1); CHLORIDE 104 MMOL/L (99-107); CREATININE 0.44 MG/DL (0.40-0.90); GLUCOSE 130 MG/DL (70-104); POTASSIUM 4.5 MMOL/L (3.5-5.1); SODIUM 136 MMOL/L (135-145); TOTAL CARBON DIOXIDE 34.2 MMOL/L (24-32); eGFR > 90 ML/MIN
[2018-01-08 05:52] LABS: BASOPHILS % (AUTO) 0 % (0-1); EOSINOPHILS % (AUTO) 0 % (0-6); HEMATOCRIT 35.6 % (35.0-45.0); HEMOGLOBIN 11.1 g/dl (12.0-16.0); LYMPHOCYTES # (AUTO) 1.4 X10'3 (1.1-4.8); LYMPHOCYTES % (AUTO) 9.8 % (21-51); MEAN CORPUSCULAR HEMOGLOBIN 24.3 PG (27.0-31.0); MEAN CORPUSCULAR HGB CONC 31.1 % (33.0-36.5); MEAN CORPUSCULAR VOLUME 77.9 FL (78-98); MEAN PLATELET VOLUME 8.4 FL (7.4-10.4); MONOCYTES # (AUTO) 0.8 X10'3 (0-0.9); MONOCYTES % (AUTO) 5.4 % (2-12); NEUTROPHILS # (AUTO) 12.2 X10'3 (1.8-7.7); NEUTROPHILS % (AUTO) 84.8 % (42-75); PLATELET COUNT 338 X10'3 (140-440); RED BLOOD COUNT 4.57 X10'6 (4.20-5.60); WHITE BLOOD COUNT 14.4 X10'3 (4.5-11.0)
[2018-01-08 07:00] VITALS: BP 107/48
[2018-01-08] MEDS: ipratropium/albuterol 3ml nebule NEB SCH ×6 (07:08→23:00)
[2018-01-08] MEDS: lactobacillus rhamnosus 10,000 MMU CELLS/CAPSULE PO SCH ×4 (08:00→19:34)
[2018-01-08] MEDS: K and/or MAG REPLACEMENT MC SCH (08:00)
[2018-01-08] MEDS: azithromycin 250mg tablet PO SCH (08:46)
[2018-01-08] MEDS: ziprasidone 20mg capsule PO SCH ×2 (08:46→19:20)
[2018-01-08] MEDS: heparin, porcine 5000 units/ml vial SQ SCH ×2 (08:47→19:21)
[2018-01-08] MEDS: pantoprazole 40 MG vial IV SCH (08:47)
[2018-01-08] MEDS: methylPREDNISolone sod succ/PF 40mg inj. IV SCH ×2 (08:47→19:20)
[2018-01-08] MEDS: busPIRone 5mg tablet PO SCH ×2 (08:47→19:20)
[2018-01-08] MEDS: mag hydrox/Alum hydrox/simeth 30ml oral suspension PO SCH ×3 (08:49→17:23)
[2018-01-08] MEDS: dextrose 5%-1/2 normal saline 1,000 ML IV SCH (08:50)
[2018-01-08 09:12] LABS: ANISOCYTOSIS 2+; HYPOCHROMASIA 1+; MICROCYTOSIS 1+; PLATELET ESTIMATE NORMAL; POIKILOCYTOSIS 1+; POLYCHROMASIA FEW
[2018-01-08 09:13] LABS: TARGET CELLS FEW
[2018-01-08 11:00] VITALS: BP 99/50
[2018-01-08] MEDS: guaiFENesin 200 MG/10 ML oral syrup UD cup PO PRN ×2 (11:12→17:23)
[2018-01-08 15:00] VITALS: BP 104/49
[2018-01-08 18:00] VITALS: BP 105/46
[2018-01-08] MEDS: morphine 2 MG/ML inj. syringe IV PRN (19:21)
[2018-01-08 22:00] VITALS: BP 100/51
[2018-01-09 02:00] VITALS: BP 92/42
[2018-01-09] MEDS: HYDROcodone/acetaminophen 5mg/325mg tablet PO PRN ×4 (02:09→19:12)
[2018-01-09 05:47] LABS: ALBUMIN 2.9 G/DL (3.4-5.0); ANION GAP 2 (8-16); BLOOD UREA NITROGEN 23 MG/DL (7-18); BUN/CREATININE RATIO 45.1 (6.6-38.0); CALCIUM 8.9 MG/DL (8.5-10.1); CHLORIDE 103 MMOL/L (99-107); CREATININE 0.51 MG/DL (0.40-0.90); GLUCOSE 118 MG/DL (70-104); POTASSIUM 4.7 MMOL/L (3.5-5.1); SODIUM 138 MMOL/L (135-145); TOTAL CARBON DIOXIDE 32.9 MMOL/L (24-32); eGFR > 90 ML/MIN
[2018-01-09 05:52] LABS: HEMATOCRIT 37.3 % (35.0-45.0); HEMOGLOBIN 11.6 g/dl (12.0-16.0); MEAN CORPUSCULAR HEMOGLOBIN 24.4 PG (27.0-31.0); MEAN CORPUSCULAR HGB CONC 31.2 % (33.0-36.5); MEAN CORPUSCULAR VOLUME 78.4 FL (78-98); MEAN PLATELET VOLUME 8.5 FL (7.4-10.4); PLATELET COUNT 345 X10'3 (140-440); RED BLOOD COUNT 4.75 X10'6 (4.20-5.60); RED CELL DISTRIBUTION WIDTH 19.8 % (11.5-14.5); WHITE BLOOD COUNT 13.3 X10'3 (4.5-11.0)
[2018-01-09 07:00] VITALS: BP 108/53
[2018-01-09] MEDS: LORazepam 0.5 MG tablet PO PRN ×2 (07:13→16:08)
[2018-01-09] MEDS: busPIRone 5mg tablet PO SCH ×2 (07:13→19:12)
[2018-01-09] MEDS: azithromycin 250mg tablet PO SCH (07:13)
[2018-01-09] MEDS: lactobacillus rhamnosus 10,000 MMU CELLS/CAPSULE PO SCH ×4 (07:14→20:42)
[2018-01-09] MEDS: ziprasidone 20mg capsule PO SCH ×2 (07:14→19:12)
[2018-01-09] MEDS: guaiFENesin 200 MG/10 ML oral syrup UD cup PO PRN ×2 (07:15→16:07)
[2018-01-09] MEDS: methylPREDNISolone sod succ/PF 40mg inj. IV SCH ×2 (07:15→19:13)
[2018-01-09] MEDS: mag hydrox/Alum hydrox/simeth 30ml oral suspension PO SCH ×3 (07:15→16:07)
[2018-01-09] MEDS: pantoprazole 40 MG vial IV SCH (07:15)
[2018-01-09] MEDS: heparin, porcine 5000 units/ml vial SQ SCH ×2 (07:15→19:13)
[2018-01-09 07:18] LABS: TOTAL CELLS COUNTED 100
[2018-01-09 07:20] LABS: ANISOCYTOSIS 2+; HYPOCHROMASIA 2+; MICROCYTOSIS 1+; PLATELET ESTIMATE NORMAL; SCHISTOCYTES FEW
[2018-01-09 07:21] LABS: TARGET CELLS FEW
[2018-01-09] MEDS: ipratropium/albuterol 3ml nebule NEB SCH ×5 (07:55→23:00)
[2018-01-09] MEDS: K and/or MAG REPLACEMENT MC SCH (08:00)
[2018-01-09 11:00] VITALS: BP 102/57
[2018-01-09] MEDS: morphine 2 MG/ML inj. syringe IV PRN ×2 (13:48→21:58)
[2018-01-09] MEDS: mag hydrox/Alum hydrox/simeth 30ml oral suspension PO PRN (14:30)
[2018-01-09 15:00] VITALS: BP 108/56
[2018-01-09] MEDS ORDERED: HYDROcodone/acetaminophen 10/325mg tab PO PRN (17:10)
[2018-01-09 18:00] VITALS: BP 116/58
[2018-01-09 22:00] VITALS: BP 100/44
[2018-01-09] MEDS: dextrose 5%-1/2 normal saline 1,000 ML IV SCH (22:30)
[2018-01-10] MEDS: HYDROcodone/acetaminophen 5mg/325mg tablet PO PRN ×5 (01:05→22:51)
[2018-01-10 02:00] VITALS: BP 104/50
[2018-01-10] MEDS: morphine 2 MG/ML inj. syringe IV PRN ×2 (03:21→09:42)
[2018-01-10 06:00] VITALS: BP 129/47
[2018-01-10 06:13] LABS: HEMATOCRIT 35.2 % (35.0-45.0); HEMOGLOBIN 10.9 g/dl (12.0-16.0); MEAN CORPUSCULAR HEMOGLOBIN 24.2 PG (27.0-31.0); MEAN CORPUSCULAR HGB CONC 30.9 % (33.0-36.5); MEAN CORPUSCULAR VOLUME 78.2 FL (78-98); MEAN PLATELET VOLUME 8.7 FL (7.4-10.4); PLATELET COUNT 312 X10'3 (140-440); RED CELL DISTRIBUTION WIDTH 19.8 % (11.5-14.5); WHITE BLOOD COUNT 14.7 X10'3 (4.5-11.0)
[2018-01-10 06:15] LABS: ALBUMIN 2.7 G/DL (3.4-5.0); ANION GAP 2 (8-16); BLOOD UREA NITROGEN 26 MG/DL (7-18); BUN/CREATININE RATIO 55.3 (6.6-38.0); CALCIUM 8.9 MG/DL (8.5-10.1); CHLORIDE 102 MMOL/L (99-107); CREATININE 0.47 MG/DL (0.40-0.90); GLUCOSE 118 MG/DL (70-104); POTASSIUM 4.7 MMOL/L (3.5-5.1); SODIUM 138 MMOL/L (135-145); eGFR > 90 ML/MIN
[2018-01-10] MEDS: pantoprazole 40mg Tablet.DR PO SCH (06:56)
[2018-01-10] MEDS: mag hydrox/Alum hydrox/simeth 30ml oral suspension PO SCH ×3 (06:57→17:11)
[2018-01-10 07:11] LABS: TOTAL CELLS COUNTED 100
[2018-01-10 07:12] LABS: ANISOCYTOSIS 2+; HYPOCHROMASIA 1+; MICROCYTOSIS 1+; PLATELET ESTIMATE NORMAL; SCHISTOCYTES FEW; TARGET CELLS FEW
[2018-01-10] MEDS: ipratropium/albuterol 3ml nebule NEB SCH ×5 (07:32→23:00)
[2018-01-10] MEDS: azithromycin 250mg tablet PO SCH (07:58)
[2018-01-10] MEDS: lactobacillus rhamnosus 10,000 MMU CELLS/CAPSULE PO SCH ×4 (07:58→21:17)
[2018-01-10] MEDS: ziprasidone 20mg capsule PO SCH ×2 (07:59→21:17)
[2018-01-10] MEDS: busPIRone 5mg tablet PO SCH ×2 (07:59→21:17)
[2018-01-10] MEDS: heparin, porcine 5000 units/ml vial SQ SCH ×2 (08:00→21:18)
[2018-01-10] MEDS: methylPREDNISolone sod succ/PF 40mg inj. IV SCH (08:00)
[2018-01-10] MEDS: K and/or MAG REPLACEMENT MC SCH (08:00)
[2018-01-10 11:00] VITALS: BP 118/57
[2018-01-10] MEDS: diatr meglu/diatrizoate 30ml oral sol.-(3 dose) bottle PO SCH ×3 (12:15→17:34)
[2018-01-10 13:04] LABS: CLARITY,URINE CLEAR (Clear); COLOR,URINE STRAW (Yellow); GLUCOSE, URINE NEGATIVE (Neg); KETONES,URINE NEGATIVE (Neg); LEUKOCYTE ESTERASE ,URINE NEGATIVE (Neg); NITRITES, URINE NEGATIVE (Neg); OCCULT BLOOD,URINE NEGATIVE (Neg); PH,URINE 7.5 (4.8-8.0); PROTEIN,URINE NEGATIVE (Neg); UROBILINOGEN,URINE 0.2 E.U/dL (0.2-1.0)
[2018-01-10 13:10] LABS: UA COLLECTION TYPE NON-SPECIFIED
[2018-01-10 15:00] VITALS: BP 117/60
[2018-01-10] MEDS ORDERED: iohexol 300mg/ml 100ml inj. ONE (17:43)
[2018-01-10 18:45] VITALS: BP 131/59
[2018-01-10 23:00] VITALS: BP 133/68
[2018-01-10] MEDS: LORazepam 0.5 MG tablet PO PRN (23:54)
[2018-01-11 02:00] VITALS: BP 123/65
[2018-01-11] MEDS: HYDROcodone/acetaminophen 5mg/325mg tablet PO PRN ×5 (03:50→20:12)
[2018-01-11 06:00] VITALS: BP 126/78
[2018-01-11 06:16] LABS: HEMATOCRIT 36.5 % (35.0-45.0); HEMOGLOBIN 11.7 g/dl (12.0-16.0); MEAN CORPUSCULAR HEMOGLOBIN 24.8 PG (27.0-31.0); MEAN CORPUSCULAR HGB CONC 32.2 % (33.0-36.5); MEAN CORPUSCULAR VOLUME 76.9 FL (78-98); MEAN PLATELET VOLUME 8.2 FL (7.4-10.4); PLATELET COUNT 287 X10'3 (140-440); RED BLOOD COUNT 4.74 X10'6 (4.20-5.60); RED CELL DISTRIBUTION WIDTH 20.5 % (11.5-14.5); WHITE BLOOD COUNT 19.3 X10'3 (4.5-11.0)
[2018-01-11 06:20] LABS: ALBUMIN 2.8 G/DL (3.4-5.0); ANION GAP 4 (8-16); BLOOD UREA NITROGEN 22 MG/DL (7-18); BUN/CREATININE RATIO 46.8 (6.6-38.0); CALCIUM 8.9 MG/DL (8.5-10.1); CHLORIDE 101 MMOL/L (99-107); CREATININE 0.47 MG/DL (0.40-0.90); GLUCOSE 80 MG/DL (70-104); POTASSIUM 3.9 MMOL/L (3.5-5.1); SODIUM 138 MMOL/L (135-145); TOTAL CARBON DIOXIDE 33.1 MMOL/L (24-32); eGFR > 90 ML/MIN
[2018-01-11 07:08] LABS: ANISOCYTOSIS 2+; MICROCYTOSIS 1+; PLATELET ESTIMATE NORMAL; TOTAL CELLS COUNTED 100
[2018-01-11] MEDS: ipratropium/albuterol 3ml nebule NEB SCH ×5 (07:08→22:51)
[2018-01-11 07:09] LABS: GIANT PLATELET FEW; HYPOCHROMASIA 2+
[2018-01-11] MEDS: mag hydrox/Alum hydrox/simeth 30ml oral suspension PO SCH ×3 (07:37→16:03)
[2018-01-11] MEDS: pantoprazole 40mg Tablet.DR PO SCH (07:37)
[2018-01-11] MEDS: busPIRone 5mg tablet PO SCH ×2 (07:38→20:08)
[2018-01-11] MEDS: lactobacillus rhamnosus 10,000 MMU CELLS/CAPSULE PO SCH ×3 (07:38→20:08)
[2018-01-11] MEDS: ziprasidone 20mg capsule PO SCH ×2 (07:38→20:09)
[2018-01-11] MEDS: methylPREDNISolone sod succ/PF 40mg inj. IV SCH (07:39)
[2018-01-11] MEDS: heparin, porcine 5000 units/ml vial SQ SCH ×2 (07:39→20:11)
[2018-01-11] MEDS: K and/or MAG REPLACEMENT MC SCH (08:00)
[2018-01-11 11:00] VITALS: BP 142/76
[2018-01-11] MEDS: LORazepam 0.5 MG tablet PO PRN ×2 (13:25→23:00)
[2018-01-11] MEDS: piperacillin/tazo 3.375gm/50ml 50 ML IV SCH ×2 (13:57→20:07)
[2018-01-11 15:00] VITALS: BP 111/58
[2018-01-11 19:00] VITALS: BP 121/70
[2018-01-11] MEDS: dextrose 5%-1/2 normal saline 1,000 ML IV SCH (22:48)
[2018-01-11 23:00] VITALS: BP 119/65
[2018-01-12] MEDS: piperacillin/tazo 3.375gm/50ml 50 ML IV SCH ×4 (02:28→19:23)
[2018-01-12 03:00] VITALS: BP 140/89
[2018-01-12 06:00] VITALS: BP 121/71
[2018-01-12] MEDS: HYDROcodone/acetaminophen 5mg/325mg tablet PO PRN ×4 (06:00→19:31)
[2018-01-12 06:33] LABS: BASOPHILS % (AUTO) 0 % (0-1); EOSINOPHILS # (AUTO) 0.2 X10'3 (0-0.9); HEMOGLOBIN 11.4 g/dl (12.0-16.0); LYMPHOCYTES % (AUTO) 6.2 % (21-51); MEAN CORPUSCULAR HEMOGLOBIN 24.5 PG (27.0-31.0); MEAN CORPUSCULAR HGB CONC 31.7 % (33.0-36.5); MEAN CORPUSCULAR VOLUME 77.3 FL (78-98); MEAN PLATELET VOLUME 8.6 FL (7.4-10.4); MONOCYTES # (AUTO) 1.3 X10'3 (0-0.9); MONOCYTES % (AUTO) 7.8 % (2-12); NEUTROPHILS # (AUTO) 14.1 X10'3 (1.8-7.7); PLATELET COUNT 266 X10'3 (140-440); RED BLOOD COUNT 4.66 X10'6 (4.20-5.60); RED CELL DISTRIBUTION WIDTH 20.8 % (11.5-14.5); WHITE BLOOD COUNT 16.6 X10'3 (4.5-11.0)
[2018-01-12 06:44] LABS: ALBUMIN 2.7 G/DL (3.4-5.0); ANION GAP 1 (8-16); BLOOD UREA NITROGEN 21 MG/DL (7-18); BUN/CREATININE RATIO 47.7 (6.6-38.0); CHLORIDE 100 MMOL/L (99-107); CREATININE 0.44 MG/DL (0.40-0.90); GLUCOSE 91 MG/DL (70-104); POTASSIUM 4.1 MMOL/L (3.5-5.1); SODIUM 137 MMOL/L (135-145); TOTAL CARBON DIOXIDE 35.7 MMOL/L (24-32); eGFR > 90 ML/MIN
[2018-01-12 06:52] LABS: ANISOCYTOSIS 3+; PLATELET ESTIMATE NORMAL; TOTAL CELLS COUNTED 100
[2018-01-12 06:53] LABS: HYPOCHROMASIA 2+; MICROCYTOSIS 1+
[2018-01-12 07:12] LABS: CALCIUM 8.8 MG/DL (8.5-10.1)
[2018-01-12] MEDS: ipratropium/albuterol 3ml nebule NEB SCH ×5 (07:18→22:21)
[2018-01-12] MEDS: K and/or MAG REPLACEMENT MC SCH (08:00)
[2018-01-12] MEDS: busPIRone 5mg tablet PO SCH ×2 (08:30→19:26)
[2018-01-12] MEDS: lactobacillus rhamnosus 10,000 MMU CELLS/CAPSULE PO SCH ×2 (08:30→19:25)
[2018-01-12] MEDS: pantoprazole 40mg Tablet.DR PO SCH (08:30)
[2018-01-12] MEDS: ziprasidone 20mg capsule PO SCH ×2 (08:30→19:25)
[2018-01-12] MEDS: methylPREDNISolone sod succ/PF 40mg inj. IV SCH (08:31)
[2018-01-12] MEDS: heparin, porcine 5000 units/ml vial SQ SCH ×2 (08:32→19:27)
[2018-01-12] MEDS: mag hydrox/Alum hydrox/simeth 30ml oral suspension PO SCH ×3 (08:41→17:14)
[2018-01-12 11:00] VITALS: BP 102/59
[2018-01-12 15:00] VITALS: BP 137/69
[2018-01-12] MEDS: LORazepam 0.5 MG tablet PO PRN (17:18)
[2018-01-12 19:00] VITALS: BP 121/59
[2018-01-12 23:00] VITALS: BP 103/56
[2018-01-13] MEDS: mag hydrox/Alum hydrox/simeth 30ml oral suspension PO PRN (00:05)
[2018-01-13] MEDS: piperacillin/tazo 3.375gm/50ml 50 ML IV SCH ×4 (01:47→20:17)
[2018-01-13 03:00] VITALS: BP 103/56
[2018-01-13] MEDS: HYDROcodone/acetaminophen 5mg/325mg tablet PO PRN ×3 (04:10→18:57)
[2018-01-13 06:00] VITALS: BP 132/64
[2018-01-13] MEDS: lactobacillus rhamnosus 10,000 MMU CELLS/CAPSULE PO SCH ×2 (07:19→20:19)
[2018-01-13] MEDS: ziprasidone 20mg capsule PO SCH ×2 (07:19→20:18)
[2018-01-13] MEDS: methylPREDNISolone sod succ/PF 40mg inj. IV SCH (07:20)
[2018-01-13] MEDS: pantoprazole 40mg Tablet.DR PO SCH (07:20)
[2018-01-13] MEDS: mag hydrox/Alum hydrox/simeth 30ml oral suspension PO SCH ×3 (07:20→18:56)
[2018-01-13] MEDS: LORazepam 0.5 MG tablet PO PRN (07:20)
[2018-01-13] MEDS: ipratropium/albuterol 3ml nebule NEB SCH ×5 (07:26→23:51)
[2018-01-13] MEDS: K and/or MAG REPLACEMENT MC SCH (08:00)
[2018-01-13 09:22] LABS: BASOPHILS % (AUTO) 0 % (0-1); EOSINOPHILS % (AUTO) 0.1 % (0-6); HEMOGLOBIN 11.5 g/dl (12.0-16.0); LYMPHOCYTES % (AUTO) 7.6 % (21-51); MEAN CORPUSCULAR HEMOGLOBIN 24.4 PG (27.0-31.0); MEAN CORPUSCULAR HGB CONC 31.1 % (33.0-36.5); MEAN CORPUSCULAR VOLUME 78.5 FL (78-98); MEAN PLATELET VOLUME 8.5 FL (7.4-10.4); MONOCYTES # (AUTO) 0.8 X10'3 (0-0.9); MONOCYTES % (AUTO) 6.4 % (2-12); NEUTROPHILS % (AUTO) 85.9 % (42-75); PLATELET COUNT 237 X10'3 (140-440); RED BLOOD COUNT 4.71 X10'6 (4.20-5.60); WHITE BLOOD COUNT 12.8 X10'3 (4.5-11.0)
[2018-01-13 09:25] LABS: ALANINE AMINOTRANSFERASE 36 U/L (12-78); ALBUMIN 2.7 G/DL (3.4-5.0); ALBUMIN/GLOBULIN RATIO 0.9 (1.1-1.5); ALKALINE PHOSPHATASE 55 IU/L (46-116); ANION GAP 2 (8-16); ASPARTATE AMINO TRANSFERASE 16 U/L (10-37); BILIRUBIN,TOTAL 0.5 MG/DL (0.1-1.0); BLOOD UREA NITROGEN 19 MG/DL (7-18); BUN/CREATININE RATIO 25.3 (6.6-38.0); CALCIUM 8.7 MG/DL (8.5-10.1); CHLORIDE 99 MMOL/L (99-107); CREATININE 0.75 MG/DL (0.40-0.90); GLUCOSE 103 MG/DL (70-104); MAGNESIUM 2.4 MG/DL (1.5-2.4); PHOSPHORUS 2.8 MG/DL (2.3-4.5); SODIUM 138 MMOL/L (135-145); TOTAL CARBON DIOXIDE 36.6 MMOL/L (24-32); TOTAL PROTEIN 5.8 G/DL (6.4-8.2); eGFR 77 ML/MIN
[2018-01-13 10:47] LABS: ANISOCYTOSIS 3+; PLATELET ESTIMATE NORMAL; TOTAL CELLS COUNTED 100
[2018-01-13 10:48] LABS: ELLIPTOCYTES FEW; HYPOCHROMASIA 2+; MICROCYTOSIS FEW; POLYCHROMASIA FEW; TOXIC GRANULATION 1+; TOXIC VACUOLATION 1+
[2018-01-13] MEDS: busPIRone 5mg tablet PO SCH ×2 (10:56→20:19)
[2018-01-13] MEDS: heparin, porcine 5000 units/ml vial SQ SCH ×2 (10:57→20:17)
[2018-01-13 11:00] VITALS: BP 137/73
[2018-01-13 15:00] VITALS: BP 116/58
[2018-01-13 19:00] VITALS: BP 125/67
[2018-01-13] MEDS: dextrose 5%-1/2 normal saline 1,000 ML IV SCH (22:30)
[2018-01-13 23:00] VITALS: BP 100/61
[2018-01-14] MEDS: piperacillin/tazo 3.375gm/50ml 50 ML IV SCH ×4 (02:36→19:40)
[2018-01-14 03:00] VITALS: BP 110/61
[2018-01-14 06:33] LABS: HEMATOCRIT 34.9 % (35.0-45.0); MEAN CORPUSCULAR HEMOGLOBIN 24.6 PG (27.0-31.0); MEAN CORPUSCULAR HGB CONC 31.6 % (33.0-36.5); MEAN PLATELET VOLUME 8.1 FL (7.4-10.4); PLATELET COUNT 227 X10'3 (140-440); RED BLOOD COUNT 4.48 X10'6 (4.20-5.60); WHITE BLOOD COUNT 9.6 X10'3 (4.5-11.0)
[2018-01-14 06:55] VITALS: BP 131/79
[2018-01-14 06:55] LABS: ALANINE AMINOTRANSFERASE 31 U/L (12-78); ALBUMIN 2.6 G/DL (3.4-5.0); ALBUMIN/GLOBULIN RATIO 0.9 (1.1-1.5); ALKALINE PHOSPHATASE 53 IU/L (46-116); ANION GAP 4 (8-16); ASPARTATE AMINO TRANSFERASE 11 U/L (10-37); BILIRUBIN,TOTAL 0.5 MG/DL (0.1-1.0); BLOOD UREA NITROGEN 15 MG/DL (7-18); BUN/CREATININE RATIO 27.3 (6.6-38.0); CALCIUM 8.6 MG/DL (8.5-10.1); CHLORIDE 104 MMOL/L (99-107); CREATININE 0.55 MG/DL (0.40-0.90); GLUCOSE 86 MG/DL (70-104); MAGNESIUM 2.3 MG/DL (1.5-2.4); PHOSPHORUS 3.4 MG/DL (2.3-4.5); POTASSIUM 3.8 MMOL/L (3.5-5.1); SODIUM 140 MMOL/L (135-145); TOTAL CARBON DIOXIDE 32.3 MMOL/L (24-32); TOTAL PROTEIN 5.5 G/DL (6.4-8.2); eGFR > 90 ML/MIN
[2018-01-14] MEDS: ipratropium/albuterol 3ml nebule NEB SCH ×5 (06:58→23:00)
[2018-01-14] MEDS: mag hydrox/Alum hydrox/simeth 30ml oral suspension PO SCH ×3 (07:56→16:13)
[2018-01-14] MEDS: methylPREDNISolone sod succ/PF 40mg inj. IV SCH (07:56)
[2018-01-14] MEDS: busPIRone 5mg tablet PO SCH ×2 (07:56→19:40)
[2018-01-14] MEDS: pantoprazole 40mg Tablet.DR PO SCH (07:57)
[2018-01-14] MEDS: ziprasidone 20mg capsule PO SCH ×2 (07:57→19:40)
[2018-01-14] MEDS: lactobacillus rhamnosus 10,000 MMU CELLS/CAPSULE PO SCH ×2 (07:57→19:40)
[2018-01-14] MEDS: heparin, porcine 5000 units/ml vial SQ SCH ×2 (07:58→19:40)
[2018-01-14] MEDS: LORazepam 0.5 MG tablet PO PRN ×2 (07:58→16:13)
[2018-01-14] MEDS: K and/or MAG REPLACEMENT MC SCH (08:17)
[2018-01-14 09:38] LABS: ANISOCYTOSIS 3+; ELLIPTOCYTES FEW; HYPOCHROMASIA 2+; MICROCYTOSIS 1+; PLATELET ESTIMATE NORMAL; TOTAL CELLS COUNTED 100
[2018-01-14 09:39] LABS: TOXIC GRANULATION 2+; TOXIC VACUOLATION 2+
[2018-01-14 11:00] VITALS: BP 99/50
[2018-01-14] MEDS: HYDROcodone/acetaminophen 5mg/325mg tablet PO PRN ×3 (13:05→21:47)
[2018-01-14 15:00] VITALS: BP 114/51
[2018-01-15] MEDS: piperacillin/tazo 3.375gm/50ml 50 ML IV SCH ×2 (02:04→07:40)
[2018-01-15] MEDS: HYDROcodone/acetaminophen 5mg/325mg tablet PO PRN ×2 (03:54→12:05)
[2018-01-15 06:07] LABS: HEMATOCRIT 35.9 % (35.0-45.0); HEMOGLOBIN 11.2 g/dl (12.0-16.0); MEAN CORPUSCULAR HEMOGLOBIN 24.6 PG (27.0-31.0); MEAN CORPUSCULAR HGB CONC 31.3 % (33.0-36.5); MEAN CORPUSCULAR VOLUME 78.4 FL (78-98); MEAN PLATELET VOLUME 8.1 FL (7.4-10.4); PLATELET COUNT 216 X10'3 (140-440); RED BLOOD COUNT 4.57 X10'6 (4.20-5.60); RED CELL DISTRIBUTION WIDTH 21.5 % (11.5-14.5); WHITE BLOOD COUNT 9.1 X10'3 (4.5-11.0)
[2018-01-15 06:50] LABS: ALANINE AMINOTRANSFERASE 40 U/L (12-78); ALBUMIN 2.6 G/DL (3.4-5.0); ALBUMIN/GLOBULIN RATIO 0.9 (1.1-1.5); ALKALINE PHOSPHATASE 50 IU/L (46-116); ANION GAP 5 (8-16); ASPARTATE AMINO TRANSFERASE 14 U/L (10-37); BILIRUBIN,TOTAL 0.4 MG/DL (0.1-1.0); BLOOD UREA NITROGEN 18 MG/DL (7-18); BUN/CREATININE RATIO 32.1 (6.6-38.0); CALCIUM 8.7 MG/DL (8.5-10.1); CHLORIDE 104 MMOL/L (99-107); CREATININE 0.56 MG/DL (0.40-0.90); GLUCOSE 84 MG/DL (70-104); MAGNESIUM 2.2 MG/DL (1.5-2.4); PHOSPHORUS 3.4 MG/DL (2.3-4.5); POTASSIUM 3.9 MMOL/L (3.5-5.1); SODIUM 141 MMOL/L (135-145); TOTAL CARBON DIOXIDE 31.6 MMOL/L (24-32); TOTAL PROTEIN 5.5 G/DL (6.4-8.2); eGFR > 90 ML/MIN
[2018-01-15 07:01] VITALS: BP 112/70
[2018-01-15] MEDS: busPIRone 5mg tablet PO SCH (07:17)
[2018-01-15] MEDS: mag hydrox/Alum hydrox/simeth 30ml oral suspension PO SCH ×2 (07:17→12:04)
[2018-01-15] MEDS: ziprasidone 20mg capsule PO SCH (07:18)
[2018-01-15] MEDS: methylPREDNISolone sod succ/PF 40mg inj. IV SCH (07:19)
[2018-01-15] MEDS: lactobacillus rhamnosus 10,000 MMU CELLS/CAPSULE PO SCH (07:19)
[2018-01-15] MEDS: LORazepam 0.5 MG tablet PO PRN (07:19)
[2018-01-15] MEDS: pantoprazole 40mg Tablet.DR PO SCH (07:19)
[2018-01-15] MEDS: heparin, porcine 5000 units/ml vial SQ SCH (07:20)
[2018-01-15] MEDS: ipratropium/albuterol 3ml nebule NEB SCH ×2 (07:30→12:05)
[2018-01-15] MEDS: K and/or MAG REPLACEMENT MC SCH (07:31)
[2018-01-15 08:06] LABS: ANISOCYTOSIS 3+; HYPOCHROMASIA 2+; PLATELET ESTIMATE NORMAL; TOTAL CELLS COUNTED 100
[2018-01-15 08:07] LABS: TARGET CELLS FEW
[2018-01-15] MEDS ORDERED: PANT40TA4 PO (09:13)
[2018-01-15] MEDS ORDERED: ALBU8.5H8 INH (09:13)
[2018-01-15] MEDS ORDERED: AMOX-419 PO (09:13)
[2018-01-15] MEDS ORDERED: FLUT1DIS4 INH (09:13)
[2018-01-15] MEDS ORDERED: LACT1CAP26 PO (09:13)
[2018-01-15] MEDS ORDERED: PRED20TA PO (09:13)
== END 2018-01-15 15:35 | DRG 280 ==
LOC: ER 14:47 → ED HOLD 19:05 → PCU 3S 20:57
PROVIDERS: ADMIT Family Medicine; ATTEND Family Medicine
PROC: 5A09357 Assistance with Respiratory Ventilation, Less than 24 Consecutive Hours, Continuous Positive Airway Pressure (ICD-10-PCS; principal; 2017-12-30)
PROC: B32T1ZZ Computerized Tomography (CT Scan) of Left Pulmonary Artery using Low Osmolar Contrast (ICD-10-PCS; 2017-12-30)
PROC: B3201ZZ Computerized Tomography (CT Scan) of Thoracic Aorta using Low Osmolar Contrast (ICD-10-PCS; 2017-12-30)
PROC: B32S1ZZ Computerized Tomography (CT Scan) of Right Pulmonary Artery using Low Osmolar Contrast (ICD-10-PCS; 2017-12-30)
PROC: 5A09357 Assistance with Respiratory Ventilation, Less than 24 Consecutive Hours, Continuous Positive Airway Pressure (ICD-10-PCS; 2017-12-31)
PROC: 5A09357 Assistance with Respiratory Ventilation, Less than 24 Consecutive Hours, Continuous Positive Airway Pressure (ICD-10-PCS; 2018-01-01)
PROC: 5A09357 Assistance with Respiratory Ventilation, Less than 24 Consecutive Hours, Continuous Positive Airway Pressure (ICD-10-PCS; 2018-01-02)
PROC: 5A09357 Assistance with Respiratory Ventilation, Less than 24 Consecutive Hours, Continuous Positive Airway Pressure (ICD-10-PCS; 2018-01-03)
PROC: 5A09357 Assistance with Respiratory Ventilation, Less than 24 Consecutive Hours, Continuous Positive Airway Pressure (ICD-10-PCS; 2018-01-04)
PROC: 5A09357 Assistance with Respiratory Ventilation, Less than 24 Consecutive Hours, Continuous Positive Airway Pressure (ICD-10-PCS; 2018-01-05)
PROC: 5A09357 Assistance with Respiratory Ventilation, Less than 24 Consecutive Hours, Continuous Positive Airway Pressure (ICD-10-PCS; 2018-01-06)
PROC: 5A09357 Assistance with Respiratory Ventilation, Less than 24 Consecutive Hours, Continuous Positive Airway Pressure (ICD-10-PCS; 2018-01-07)
PROC: 5A09357 Assistance with Respiratory Ventilation, Less than 24 Consecutive Hours, Continuous Positive Airway Pressure (ICD-10-PCS; 2018-01-08)
PROC: 5A09357 Assistance with Respiratory Ventilation, Less than 24 Consecutive Hours, Continuous Positive Airway Pressure (ICD-10-PCS; 2018-01-09)
PROC: 5A09357 Assistance with Respiratory Ventilation, Less than 24 Consecutive Hours, Continuous Positive Airway Pressure (ICD-10-PCS; 2018-01-10)
PROC: BW211ZZ Computerized Tomography (CT Scan) of Abdomen and Pelvis using Low Osmolar Contrast (ICD-10-PCS; 2018-01-10)
PROC: 5A09357 Assistance with Respiratory Ventilation, Less than 24 Consecutive Hours, Continuous Positive Airway Pressure (ICD-10-PCS; 2018-01-11)
PROC: 5A09357 Assistance with Respiratory Ventilation, Less than 24 Consecutive Hours, Continuous Positive Airway Pressure (ICD-10-PCS; 2018-01-12)
PROC: 5A09357 Assistance with Respiratory Ventilation, Less than 24 Consecutive Hours, Continuous Positive Airway Pressure (ICD-10-PCS; 2018-01-13)
PROC: 5A09357 Assistance with Respiratory Ventilation, Less than 24 Consecutive Hours, Continuous Positive Airway Pressure (ICD-10-PCS; 2018-01-14)
PROC: 5A09357 Assistance with Respiratory Ventilation, Less than 24 Consecutive Hours, Continuous Positive Airway Pressure (ICD-10-PCS; 2018-01-15)
DX: I21.A1 Myocardial infarction type 2 (principal); J18.9 Pneumonia, unspecified organism; J96.21 Acute and chronic respiratory failure with hypoxia; G93.40 Encephalopathy, unspecified; J96.22 Acute and chronic respiratory failure with hypercapnia; J44.1 Chronic obstructive pulmonary disease with (acute) exacerbation; J44.0 Chronic obstructive pulmonary disease with (acute) lower respiratory infection; I50.9 Heart failure, unspecified; E86.0 Dehydration; E87.6 Hypokalemia; J30.2 Other seasonal allergic rhinitis; E87.5 Hyperkalemia; K44.9 Diaphragmatic hernia without obstruction or gangrene; F20.9 Schizophrenia, unspecified; F41.9 Anxiety disorder, unspecified; G89.29 Other chronic pain; F17.200 Nicotine dependence, unspecified, uncomplicated; Z51.5 Encounter for palliative care; Z66 Do not resuscitate; Z88.5 Allergy status to narcotic agent; Z79.899 Other long term (current) drug therapy; Z79.82 Long term (current) use of aspirin; Z82.3 Family history of stroke
CPT/HCPCS: 36415; 36600; 70450; 71045; 71275; 74018; 74177; 76700; 80048; 80053; 80202; 81003; 82803; 82948; 83605; 83735; 83880; 84100; 84484; 85018; 85025; 85379; 87040; 87070; 87077; 87186; 93005; 93306; 94640; 94660; 94760; 96365; 96366; 96375; 97116; 97162; 97530; 99285; A6213; C9113; J1644; J1940; J1956; J2270; J2543; J2920; J2930; J3370; J7030; J7042; Q9963; Q9967